=== PATIENT | female | born 1975 | race Caucasian/White ===

== ENCOUNTER 2023-04-15 12:44 | Emergency (ER) | payer BC, SELFPAY ==
[2023-04-15 12:49] VITALS: BP 140/93; PULSE 90; RESP 18; TEMP 36.5; O2SAT 98; BMI 36.6
--- NOTE | 2023-04-15 13:07 | ED.GENADUL1 ---
HPI - General Adult General Chief complaint: Extremity Problem, Nontraumatic Stated complaint: LOWER EXTREMITY PAIN BOTH FEET Time Seen by Provider: 04/15/23 12:54 History of Present Illness HPI narrative: The patient is a diabetic who developed tingling and pain in both legs about 2 months ago. She has not discussed this with her PCP. She told me that her blood sugars have been between 110 and 120 but she has not had her HbA1c checked in a long time . She is supposed to see her PCP in a few weeks. No injury to the legs. No leg redness, swelling or skin changes. She denied any pain behind the knee or in the calves. No chest pain or shortness of breath. No travel history to suggest DVT. She has HTN and DM. Takes Glipizide, she told me. Related Data Home Medications Medication Instructions Recorded Confirmed alprazolam 0.25 mg tablet 0.25 mg PO TID PRN anxiety 04/15/23 04/15/23 atorvastatin 40 mg tablet 40 mg PO DAILY 04/15/23 04/15/23 cyclobenzaprine 10 mg tablet 10 mg PO BID 04/15/23 04/15/23 glipizide 5 mg tablet 5 mg PO DAILY 04/15/23 04/15/23 hydrochlorothiazide 50 mg tablet 50 mg PO DAILY 04/15/23 04/15/23 irbesartan 150 mg tablet 150 mg PO BID 04/15/23 04/15/23 thyroid (pork) 120 mg tablet (MEDICAL LIBRARY ASSISTANT 120 mg PO DAILY 04/15/23 04/15/23 Thyroid) venlafaxine 150 mg 150 mg PO DAILY 04/15/23 04/15/23 capsule,extended release 24 hr zolpidem 10 mg tablet 10 mg PO DAILY 04/15/23 04/15/23 Allergies Allergy/AdvReac Type Severity Reaction Status Date / Time No Known Drug Allergies Allergy Verified 04/15/23 12:52 PFSH PFSH Social History Smoking status: Current every day smoker Exam Narrative Exam Narrative: Nurses notes and vital signs reviewed and patient is not hypoxic. afebrile General: Well-appearing and in no apparent distress. Skin: Warm, dry, no pallor noted. No rash to lower extremities. Head: Normocephalic, atraumatic. Eye: Pupils are equal, round and EOMI. No scleral icterus. Cardiovascular: Regular Rate and Rhythm without murmur, gallop or rub. Respiratory: No accessory muscle use or respiratory distress. Lungs are clear to auscultation, no wheezing, rales or rhonchi Musculoskeletal: Soft tissue tenderness on palpation of both feet, heels and ankles. No swelling, deformity, erythema, or skin changes. Both LEs with normal ROM, no calf or popliteal tenderness, no lower extremity edema/swelling Neurological: A&O x4. No cranial nerve dysfunction observed. No truncal ataxia. Moves all extremities. Sensation intact. Psychiatric: Cooperative and interactive. Normal mood and affect. Constitutional Vital Signs, click to edit/add: Last Vital Signs Temp 97.7 F 04/15/23 12:49 Pulse 90 04/15/23 12:49 Resp 18 04/15/23 12:49 BP 140/93 H 04/15/23 12:49 Pulse Ox 98 04/15/23 12:49 O2 Del Method Room Air 04/15/23 12:49 Course Vital Signs Vital signs: Vital Signs Temperature 97.7 F 04/15/23 12:49 Pulse Rate 90 04/15/23 12:49 Respiratory Rate 18 04/15/23 12:49 Blood Pressure 140/93 H 04/15/23 12:49 Pulse Oximetry 98 04/15/23 12:49 Oxygen Delivery Method Room Air 04/15/23 12:49 Temperature 97.7 F 04/15/23 12:49 Pulse Rate 90 04/15/23 12:49 Respiratory Rate 18 04/15/23 12:49 Blood Pressure 140/93 H 04/15/23 12:49 Pulse Oximetry 98 04/15/23 12:49 Oxygen Delivery Method Room Air 04/15/23 12:49 Medical Decision Making [facility] Narrative Medical decision making narrative: Patient's presentation is consistent with diabetic neuropathy. Basic blood testing obtained including CRP and ESR. WBC 11k. ESR 36. K 3.4. CRP negative. Remainder of blood testing unremarkable. Patient informed of results. She has an appointment with her PCP and can discuss any additional non-emergent testing such as EMG or initiation of monitored meds like Neurontin. . Lab Data Lab results reviewed: Yes I reviewed the patient's lab results Labs: Lab Results 04/15/23 Range/Units 13:13 WBC 11.1 H (4.0-11.0) 10^3/uL RBC 4.88 (4.20-5.40) 10^6/uL Hgb 14.2 (12.0-16.0) g/dL Hct 43.5 (36.0-48.0) % MCV 89.1 (81.0-99.0) fL MCH 29.1 (26.7-34.0) pg MCHC 32.6 (29.9-35.2) g/dL RDW 13.5 (11.0-15.0) % Plt Count 320 (150-450) 10^3/uL MPV 10.1 (9.5-13.5) fL Neut % (Auto) 43.8 (43.0-75.0) % Lymph % (Auto) 44.2 (20.5-60.0) % Rogers % (Auto) 5.1 (1.7-12.0) % Eos % (Auto) 5.6 (0.9-7.0) % Baso % (Auto) 0.8 (0.2-2.0) % Neut # (Auto) 4.9 (1.4-6.5) 10^3/uL Lymph # (Auto) 4.9 H (1.2-3.8) 10^3/uL Rogers # (Auto) 0.6 (0.3-0.8) 10^3/uL Eos # (Auto) 0.6 (0.0-0.7) 10^3/uL Baso # (Auto) 0.1 (0.0-0.1) 10^3/uL Abs Immat Gran (auto) 0.05 H (0.00-0.03) 10^3/uL Imm/Tot Granulo (auto) 0.5 (0.0-0.5) % ESR 36 H (<=30) mm/hr Sodium 140 (136-145) mmol/L Potassium 3.4 L (3.5-5.1) mmol/L Chloride 101 (98-107) mmol/L Carbon Dioxide 30.9 (21.0-32.0) mmol/L Anion Gap 11.5 BUN 14.0 (7.0-18.0) mg/dL Creatinine 0.87 (0.55-1.02) mg/dL Est GFR ( Amer) >60 (>=60) Est GFR (Non-Af Amer) >60 (>=60) BUN/Creatinine Ratio 16.1 Glucose 141 H (74-106) mg/dL Calcium 9.2 (8.5-10.1) mg/dL C-Reactive Protein <0.2 (<=1.0) mg/dL Discharge Plan Discharge Chief Complaint: Extremity Problem, Nontraumatic Clinical Impression: Diabetic peripheral neuropathy Patient Disposition: Home, Self-Care Time of Disposition Decision: 13:49 Prescriptions / Home Meds: No Action alprazolam 0.25 mg tablet 0.25 mg PO TID PRN (Reason: anxiety) atorvastatin 40 mg tablet 40 mg PO DAILY cyclobenzaprine 10 mg tablet 10 mg PO BID glipizide 5 mg tablet 5 mg PO DAILY hydrochlorothiazide 50 mg tablet 50 mg PO DAILY irbesartan 150 mg tablet 150 mg PO BID thyroid (pork) [MEDICAL LIBRARY ASSISTANT Thyroid] 120 mg tablet 120 mg PO DAILY venlafaxine 150 mg capsule,extended release 24hr 150 mg PO DAILY zolpidem 10 mg tablet 10 mg PO DAILY Instructions: Foot Care for People with Diabetes (ED), Diabetic Neuropathy (ED) Stand Alone Forms: Portal Instructions Referrals: Physician,Non-Staff, MD [Primary Care Provider] - 1 week
[2023-04-15 13:22] LABS: Basophils Absolute Auto 0.1 10^3/uL (0.0-0.1); Basophils Percent Auto 0.8 % (0.2-2.0); Eosinophils Absolute Auto 0.6 10^3/uL (0.0-0.7); Eosinophils Percent Auto 5.6 % (0.9-7.0); Hematocrit 43.5 % (36.0-48.0); Hemoglobin 14.2 g/dL (12.0-16.0); Immature Granulocytes Abs Auto 0.05 10^3/uL (0.00-0.03); Immature Granulocytes Pct Auto 0.5 % (0.0-0.5); Lymphocytes Absolute Auto 4.9 10^3/uL (1.2-3.8); Lymphocytes Percent Auto 44.2 % (20.5-60.0); Mean Corpuscular HGB Conc 32.6 g/dL (29.9-35.2); Mean Corpuscular Hemoglobin 29.1 pg (26.7-34.0); Mean Corpuscular Volume 89.1 fL (81.0-99.0); Mean Platelet Volume 10.1 fL (9.5-13.5); Monocytes Absolute Auto 0.6 10^3/uL (0.3-0.8); Monocytes Percent Auto 5.1 % (1.7-12.0); Neutrophils Absolute Auto 4.9 10^3/uL (1.4-6.5); Neutrophils Percent Auto 43.8 % (43.0-75.0); Platelet Count 320 10^3/uL (150-450); Red Blood Count 4.88 10^6/uL (4.20-5.40); Red Cell Distribution Width 13.5 % (11.0-15.0); White Blood Count 11.1 10^3/uL (4.0-11.0)
[2023-04-15 13:24] LABS: Erythrocyte Sedimentation Rate 36 mm/hr (<=30)
[2023-04-15 13:28] LABS: Anion Gap 11.5; BUN Creatinine Ratio 16.1; C Reactive Protein <0.2 mg/dL (<=1.0); Calcium 9.2 mg/dL (8.5-10.1); Carbon Dioxide 30.9 mmol/L (21.0-32.0); Chloride 101 mmol/L (98-107); Estimated GFR (African America >60 (>=60); Estimated GFR (Non-African Ame >60 (>=60); Glucose 141 mg/dL (74-106); Potassium 3.4 mmol/L (3.5-5.1); Sodium 140 mmol/L (136-145)
== END 2023-04-15 13:56 | disposition home or self-care (01) ==
PROVIDERS: Emergency Provider Emergency Medicine
DX: E11.42 Type 2 diabetes mellitus with diabetic polyneuropathy (principal); I10 Essential (primary) hypertension; Z79.899 Other long term (current) drug therapy; Z79.890 Hormone replacement therapy; F17.210 Nicotine dependence, cigarettes, uncomplicated
CPT/HCPCS: 36415; 80048; 85025; 85652; 86140; 99283

== ENCOUNTER 2023-12-12 11:59 | Outpatient (OUT) | payer BC, SELFPAY ==
[2023-12-12 12:26] LABS: Basophils Absolute Auto 0.1 10^3/uL (0.0-0.1); Basophils Percent Auto 0.7 % (0.2-2.0); Eosinophils Absolute Auto 0.5 10^3/uL (0.0-0.7); Eosinophils Percent Auto 3.6 % (0.9-7.0); Hematocrit 44.7 % (36.0-48.0); Hemoglobin 14.4 g/dL (12.0-16.0); Immature Granulocytes Abs Auto 0.07 10^3/uL (0.00-0.03); Immature Granulocytes Pct Auto 0.5 % (0.0-0.5); Lymphocytes Percent Auto 33.7 % (20.5-60.0); Mean Corpuscular HGB Conc 32.2 g/dL (29.9-35.2); Mean Corpuscular Hemoglobin 28.9 pg (26.7-34.0); Mean Corpuscular Volume 89.8 fL (81.0-99.0); Mean Platelet Volume 10.1 fL (9.5-13.5); Monocytes Absolute Auto 0.7 10^3/uL (0.3-0.8); Neutrophils Absolute Auto 8.3 10^3/uL (1.4-6.5); Neutrophils Percent Auto 56.5 % (43.0-75.0); Platelet Count 331 10^3/uL (150-450); Red Blood Count 4.98 10^6/uL (4.20-5.40); Red Cell Distribution Width 12.9 % (11.0-15.0); White Blood Count 14.7 10^3/uL (4.0-11.0)
[2023-12-12 12:55] LABS: Anion Gap 13.7; BUN Creatinine Ratio 18.7; Calcium 9.2 mg/dL (8.5-10.1); Carbon Dioxide 28.6 mmol/L (21.0-32.0); Chloride 102 mmol/L (98-107); Estimated GFR (African America >60 (>=60); Estimated GFR (Non-African Ame >60 (>=60); Glucose 161 mg/dL (74-106); Potassium 3.3 mmol/L (3.5-5.1); Sodium 141 mmol/L (136-145)
== END 2023-12-12 12:00 | disposition home or self-care (01) ==
LOC: LAB 12:01
PROVIDERS: Visit Provider Podiatrist Foot & Ankle Surgery
DX: Z01.812 Encounter for preprocedural laboratory examination (principal)
CPT/HCPCS: 36415; 80048; 85025

== ENCOUNTER 2025-02-19 13:15 | Outpatient (OUT) | payer OTHER, SELFPAY ==
--- NOTE | 2025-02-19 13:20 | ECG_ITS ---
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 Measurements Intervals Jackson Rate: 70 P: 24 AR: 196 QRS: 43 QRSD: 98 T: 60 QT: 401 QTc: 434 Interpretive Statements SINUS RHYTHM Normal ECG Compared to ECG 04/01/2022 00:12:50 No significant changes Electronically Signed On 02-19-2025 13:59:57 EDT by AYANNA BRIONES M.D.
--- OUTSIDE RECORDS SUMMARY | 2025-02-19 13:33 | XMS_ITS | CCD ---
Author Organization [facility] Inform ion [facility] Care Team Providers Care Temper [place] Name Role Phone DR JOSE L ROMERO Attending Unavailable HEATHER, DR JOSE L Jason Consulting Unavailable HEATHER, DR JOSE L Jason Admitting Unavailable ANDRES WOLF Consulting Unavailable Arely Clemens Unavailable HEIDI Tee Emergency Provider GUILLE Rivera Primary Care Provider Danny Tee Admitting Unavailable Danny Tee Attending Unavailable Asha Rivera Primary Care Unavailable Asha Rivera MD Unavailable Asha Rivera Primary Care Physician DOLADONIS FLORES Attending Unavailable DOLCE, ADONIS Obando Attending Unavailable DOLCE, ADONIS Obando Referring Unavailable DOLCE, ADONIS Obando Attending Unavailable DOLCE, ADONIS Obando Attending Unavailable DOLCE, ADONIS Obando Attending Unavailable DOLCE, ADONIS Obando Attending Unavailable TESMONDCESAR Attending Unavailable DOLCE, ADONIS Obando Referring Unavailable DOLCE, ADONIS Obando Attending Unavailable DOLCE, ADONIS Obando Attending Unavailable DOLCE, ADONIS Obando Attending Unavailable DOLCE, ADONIS Obando Referring Unavailable DOLCE, ADONIS Obando Attending Unavailable DOLCE, ADONIS Obando Attending Unavailable DOLCE, ADONIS Obando Attending Unavailable ASHA NOE Referring Unavailable NILLBernard Attending Unavailable Allergies Allergy Classification Reported Allergen(s) Allergy Type Date of Onset Reaction(s) Facility (2 sources) metFORMIN; Translations: [metformin] Drug Allergy Vomiting (disorder), Nausea (finding) [facility] (2 sources) Rybelsus; Translations: [semaglutide] Drug allergy unknown [facility] [place] Medications Current Medications Medication Drug Class(es) Dates Sig (Normalized) Sig (Original) 3 ML semaglutide 2.68 MG/ML Pen Injector [Ozempic] (1 source) Start: 02-04-2025 inject 2 mg by subcutaneous injection every week Ozempic 8 mg/3 mL (2 mg dose) subcutaneous solution 2 mg, SubCutaneous, qWeek, Refills(s) 0 Start Date: 02/04/25 Status: Ordered Repeat number: 1 acetaminophen 325 mg / HYDROcodone bitartrate 5 mg oral tablet (1 source) Opioid Agonist Start: 05-02-2020 [place] 325 mg-5 mg oral tablet See Instructions, for pain, 40 tab(s), Refill(s) 0, 1 - 2 po q4-6h prn pain Dx: m17.11 Duration: 7 days, [facility]/pharmacy #[id number], 162, cm, 04/28/20 13:15:00 EDT, Height/Length Dosing, 113.6, kg, 04/28/20 13:15:00 EDT, Weight Dosing Start Date: 05/02/20 Status: Ordered acetaminophen 325 mg / oxyCODONE hydrochloride 5 mg oral tablet (1 source) Opioid Agonist Start: 05-24-2023 take 1 tablet by mouth every six hours Oxycodone-Acetami nophen (Percocet) 5-325 mg tablet Active 1 TAB PO Q6H 10 May 24, 2023 [id number] 200 actuat albuterol 0.09 mg/actuat metered dose inhaler (1 source) beta2-Adrenergic Agonist Start: 06-08-2022 take 2 puff(s) by inhalation every four hours as needed Albuterol Sulfate HFA 108 (90 Base) MCG/ACT 2 puffs as needed Inhalation every 4 hrs May, Active ALPRAZolam 0.25 mg oral tablet (3 sources) Benzodiazepine Start: 02-04-2025 take 1 tablet by mouth three times daily as needed for anxiety Xanax 0.25 mg Tab 0.25 mg = 1 tab(s), Oral, TID, PRN as needed for anxiety, Refills(s) 0 Start Date: 02/04/25 Status: Ordered Repeat number: 1 Start: 02-16-2023 take 1 tablet by aneesh th in the morning, then take 1 tablet by mouth in the evening, then take 1 tablet by mouth at bedtime ALPRAZolam (Xanax) 0.25 MG tablet Take 0.25 mg by mouth in the morning and 0.25 mg in the evening and 0.25 mg before bedtime. 0 02/16/2023 Active amitriptyline hydrochloride 50 mg oral tablet (1 source) Tricyclic Antidepressant Start: 04-28-2020 take 1 tablet by mouth once daily at bedtime amitriptyline 50 mg Tab 50 mg = 1 tab(s), Oral, Once a day (at bedtime), Depression Start Date: 04/28/20 Status: Ordered amoxicillin 875 mg oral tablet (1 source) Penicillin-class Antibacterial Start: 06-08-2022 take 1 tablet by mouth every twelve hours Amoxicillin 875 MG 1 tablet Orally every 12 hrs for 7 days May, Active aspirin 325 mg delayed release oral tablet (1 source) Platelet Aggregation Inhibitor, Nonsteroidal Anti-inflammatory Drug Start: 05-02-2020 take 1 tablet by mouth once daily Ecotrin 325 mg Tab-EC 325 mg = 1 tab(s), Oral, Daily, # 21 tab(s), Refills(s) 0, Pharmacy: [facility]/pharmacy #[id number], 162, cm, 04/28/20 13:15:00 EDT, Height/Length Dosing, 113.6, kg, 04/28/20 13:15:00 EDT, Weight Dosing Start Date: 05/02/20 Status: Ordered atorvastatin 40 mg oral tablet (5 sources) HMG-CoA Reductase Inhibitor Start: 02-04-2025 take 1 tablet by mouth once daily atorvastatin 40 mg Tab 40 mg = 1 tab(s), Oral, Daily, Refills(s) 0 Start Date: 02/04/25 Status: Ordered Repeat number: 1 Start: 02-18-2023 take 1 tablet by aneesh th in the morning atorvastatin (Lipitor) 40 MG tablet Take 40 mg by mouth in the morning. 0 02/18/2023 Active Start: 04-28-2020 take 1 tablet by aneesh th once daily atorvastatin 20 mg Tab 20 mg = 1 tab(s), Oral, Daily, High cholesterol Start Date: 04/28/20 Status: Ordered Atorvastatin Ascencion cium Active 12 hr buPROPion hydrochloride 90 mg / naltrexone hydrochloride 8 mg extended release oral tablet (1 source) Opioid Antagonist, Aminoketone Contrave 8-90 MG (Pr ior Auth: Rx Ref#:[id number]) Oral for 30 Active cyclobenzaprine hydrochloride 10 mg oral tablet (3 sources) Muscle Relaxant Start: take 1 tablet by mouth three times daily as needed for muscle spasms cyclobenzaprine 10 mg Tab 10 mg = 1 tab(s), Oral, TID, PRN for spasm, Refills(s) 0 Start Date: 02/04/25 Status: Ordered Repeat number: 1 Start: 02-16-2023 take 1 tablet by aneesh in the morning cyclobenzaprine (Flexeril) 10 MG tablet Take 10 mg by mouth in the morning and 10 mg before bedtime. 0 02/16/2023 Active diclofenac sodium 0.01 mg/mg topical gel (2 sources) Nonsteroidal Anti-inflammatory Drug Start: 05-19-2023 End: 08-17-2023 diclofenac sodium 1 % gel Indications: Neuralgia Apply 2 g topically in the morning and 2 g in the evening and 2 g before bedtime. 180 g 2 05/19/2023 08/17/2023 Active escitalopram 10 mg oral tablet (2 sources) Serotonin Reuptake Inhibitor take 1 tablet by mouth every twenty-four hours Lexapro 10 MG 1 tablet Orally Once a day Active Escitalopram Oxa late 20 MG (Prior Auth: Rx Ref#:[id number]) Oral for 30 Active fluticasone propionate 0.05 mg/actuat metered dose nasal spray (1 source) Corticosteroid Start: 02-04-2025 Flonase 0.05 mg/inh Martin 2 spray(s), Nasal, Daily, Refill(s) 0 Start Date: 02/04/25 Status: Ordered Repeat number: 1 gabapentin 300 mg oral capsule (3 sources) Anti-epileptic Agent Start: 02-04-2025 take 1 capsule by mouth three times daily gabapentin 300 mg Cap 300 mg = 1 cap(s), Oral, TID, Refills(s) 0 Start Date: 02/04/25 Status: Ordered Repeat number: 1 Start: 05-06-2023 take 1 capsule by mo uth in the morning, then take 1 capsule by mouth in the evening, then take 1 capsule by mouth at bedtime gabapentin (Neurontin) 300 MG capsule Take 300 mg by mouth in the morning and 300 mg in the evening and 300 mg before bedtime. 0 05/06/2023 Active glipiZIDE 5 mg oral tablet (2 sources) Sulfonylurea take 1 tablet by mouth in the morning glipiZIDE (Glucotrol) 5 MG tablet Take 5 mg by mouth in the morning. 0 Active hydroCHLOROthiazide 50 mg oral tablet (5 sources) Thiazide Diuretic Start: 2024 take 1 tablet by mouth once daily hydrochlorothiazide 50 mg Tab 50 mg = 1 tab(s), Oral, Daily, Refills(s) 0 Start Date: 02/04/25 Status: Ordered Repeat number: 1 Start: 04-28-2020 take 1 tablet by aneesh th once daily hydrochlorothiazide 25 mg Tab 25 mg = 1 tab(s), Oral, Daily, High blood pressure Start Date: 04/28/20 Status: Ordered take 1 tablet by aneesh th in the morning hydroCHLOROthiazide (HYDRODiuril) 50 MG tablet Take 50 mg by mouth in the morning. 0 Active hydroCHLOROthiaz deni Active hydroCHLOROthiazide 25 mg / losartan potassium 100 mg oral tablet (1 source) Thiazide Diuretic, Angiotensin 2 Receptor [place] Losartan Potassium-H CTZ 100-25 MG (Prior Auth: Rx Ref#:[id number]) Oral for 30 Active irbesartan 150 mg oral tablet (5 sources) Angiotensin 2 Receptor [place] Start: 2019 take 1 tablet by mouth once daily irbesartan 150 mg Tab 150 mg = 1 tab(s), Oral, Daily, High blood pressure Start Date: 04/28/20 Status: Ordered Repeat number: 1 Irbesartan Activ e meloxicam 15 mg oral tablet (2 sources) Nonsteroidal Anti-inflammatory Drug Start: 08-03-2023 End: 09-02-2023 take 1 tablet by mouth in the morning, then take 1 tablet by mouth once daily meloxicam (Mobic) 15 MG tablet Indications: Osteoarthritis Take 1 tablet (15 mg) by mouth in the morning. Take one pill PO Daily. 30 tablet 0 08/03/2023 09/02/2023 Active methylPREDNISolone 4 mg oral tablet (1 source) Corticosteroid Start: 06-08-2022 methylPREDNISolone 4 MG as directed Orally Once a day for 6 days May, Active thyroid (care home) 120 mg oral tablet (5 sources) Start: 04-28-2020 take 1 tablet by mouth once daily [facility] Thyroid 120 mg Tab 120 mg = 1 tab(s), Oral, Daily, Thyroid Start Date: 04/28/20 Status: Ordered Repeat number: 1 24 hr venlafaxine 150 mg extended release oral capsule (6 sources) Serotonin and Norepinephrine Reuptake Inhibitor Start: 04-28-2020 take 1 capsule by mouth once daily venlafaxine 150 mg Cap-ER 150 mg = 1 cap(s), Oral, Daily, Refills(s) 0 Start Date: 02/04/25 Status: Ordered Repeat number: 1 take 1 capsule by mo [facility] every twenty-four hours in the morning venlafaxine XR (Effexor XR) 150 MG 24 hr capsule Take 150 mg by mouth in the morning. 0 Active Venlafaxine HCl Active zolpidem tartrate 10 mg oral tablet (3 sources) gamma-Aminobutyric Acid-ergic Agonist Start: 02-04-2025 take 1 tablet by mouth once daily at bedtime as needed for sleep Ambien 10 mg Tab 10 mg = 1 tab(s), Oral, Once a day (at bedtime), PRN for sleep, Refills(s) 0 Start Date: 02/04/25 Status: Ordered Repeat number: 1 take 1 tablet by [facility] at bedtime for sleep zolpidem (Ambien) 10 MG tablet Take 10 m g by mouth at bedtime. for sleep 0 Active Completed/Discontinued Medications Medication Drug Class(es) Dates Sig (Normalized) Sig (Original) potassium chloride 20 meq extended release oral tablet (1 source) Start: 02-04-2025 take 1 tablet by mouth once daily potassium chloride 20 mEq ER Tab 20 mEq = 1 tab(s), Oral, Daily, Refills(s) 0 Start Date: 02/04/25 Status: Ordered Repeat number: 1 Problems Active Problems Problem Classification Problem Date Documented Date Episodic/Chronic Chronic obstructive pulmonary disease and bronchiectasis (1 source) Chronic obstructive pulmonary disease, unspecified; Translations: [COPD UNSPECIFIED] Onset: 04-02-2022 Chronic Chronic obstructive pulmonary disease and bronchiectasis (1 source) Bronchitis, not specified as acute or chronic Episodic Diabetes mellitus with complications (1 source) Disorder of nervous system due to type 2 diabetes mellitus; Translations: [Type 2 diabetes mellitus with other diabetic neurological complication] 08-17-2023 Chronic Diabetes mellitus without complication (1 source) Type 2 diabetes mellitus Onset: 02-24-2023 02-04-2025 Chronic Disorders of lipid metabolism (1 source) Mixed hyperlipidemia Onset: 02-24-2023 02-04-2025 Chronic Esophageal disorders (1 source) Gastroesophageal reflux disease 02-04-2025 Chronic Essential hypertension (4 sources) Hypertensive disorder; Translations: [Essential hypertension] Onset: 02-24-2023 09-21-2013 Chronic Immunizations and screening for infectious disease (2 sources) Contact with and (suspected) exposure to other viral communicable diseases; Translations: [Contact with and (suspected) exposure to other viral communicable diseases] Episodic Mood disorders (4 sources) Depressive disorder 09-21-2013 Chronic Nonspecific chest pain (1 source) Other chest pain; Translations: [OTHER CHEST PAIN] Onset: 04-02-2022 Episodic Osteoarthritis (2 sources) Osteoarthritis of knee 04-28-2020 Chronic Other connective tissue disease (1 source) Foot pain; Translations: [Pain in right foot] 05-24-2023 Episodic Other connective tissue disease (1 source) Pain in left foot; Translations: [Pain in left foot] Onset: 05-24-2023 Episodic Other connective tissue disease (1 source) Plantar fasciitis; Translations: [Plantar fascial fibromatosis] 08-17-2023 Episodic Other nervous system disorders (1 source) Neuropathy; Translations: [Polyneuropathy, unspecified] 05-24-2023 Chronic Other nervous system disorders (1 source) Mortons neuroma of left foot; Translations: [Lesion of plantar nerve, left lower limb] 08-17-2023 Chronic Other nervous system disorders (1 source) Mortons neuroma of right foot; Translations: [Lesion of plantar nerve, right lower limb] 08-17-2023 Chronic Other nutritional; endocrine; and metabolic disorders (1 source) Body mass index 30+ - obesity 02-08-2025 Chronic Other nutritional; endocrine; and metabolic disorders (1 source) Obese class III 02-04-2025 Chronic Other upper respiratory disease (1 source) Allergic rhinitis 02-04-2025 Chronic Otitis media and related conditions (1 source) Otitis media, unspecified, right ear Episodic Substance-related disorders (3 sources) Nicotine dependence, cigarettes, uncomplicated; Translations: [Smoker] Onset: 04-02-2022 10-31-2014 Chronic Comment on above: Added secondary to d ocumentation in Social History. Thyroid disorders (3 sources) Hypothyroidism 04-28-2020 Chronic Unclassified (3 sources) COUGH, UNSPECIFIED; Translations: [COUGH, UNSPECIFIED] Onset: 04-02-2022 Unclassified (1 source) Pain in right foot; Translations: [Pain in right foot] Onset: 05-24-2023 Past or Other Problems Problem Classification Problem Date Documented Da te Episodic/Chronic Unclassified (1 source) COUGH, UNSPECIFIED; Translations: [COUGH, UNSPECIFIED] Onset: 2022 Viral infection (1 source) COVID-19 Results Test Name Value Interpretation Reference Range Facility Ambulatory Visit Summaryon 0 02-08-2025 Ambulatory Visit Summary Ambulatory Visit Summary [place] :1975 Visit Date:02/08/2025 Ambulatory Visit Instructions Your Care Team Attending Physician - URIEL WONG, Bernard Jason Primary Care Physician - Miguel JACK, Asha Espana Referring Physician - DR. ASHA NOE This Is Your Medications List Contact prescribing physician if questions or concerns alprazolam (Xanax 0.25 mg Tab) atorvastatin (atorvastatin 40 mg Tab) cyclobenzaprine (cyclobenzaprine 10 mg Tab) fluticasone nasal (Flonase 0.05 mg/inh Martin) gabapentin (gabapentin 300 mg Cap) hydrochlorothiazide (hydrochlorothiazide 50 mg Tab) irbesartan (irbesartan 150 mg Tab) potassium chloride (potassium chloride 20 mEq ER Tab) semaglutide (Ozempic 8 mg/3 mL (2 mg dose) subcutaneous solution) thyroid desiccated ([place] Thyroid 120 mg Tab) venlafaxine (venlafaxine 150 mg Cap-ER) venlafaxine (venlafaxine 150 mg Cap-ER) zolpidem (Ambien 10 mg Tab) Procedures Performed Arthroscopic chondroplasty of knee joint (05/02/2020), Arthroscopy of knee (05/02/2020), Appendectomy, Bone spur, , Ovarian cystectomy, Plantar fasciotomy, CON BSO - Total abdominal hysterectomy and bilateral salpingo-oophorectomy. Discharge Vitals Heart Rate (Peripheral) 86 Respiratory Rate 16 Blood Pressure 127/86 Height 162.5 cm Height 64 in Weight 96.7 kg Weight 213.187 lb BMI 36.62 What to do next Scheduled Follow-Up Appointments Tuesday 3:30 PM EDT Where: [facility] Medications What How Much When Instructions Unchanged alprazolam (Xanax 0.25 mg Tab) 1 Tablets By Mouth 3 times a day as needed for as needed for anxiety Contact prescribing physician if questions or concerns Unchanged atorvastatin (atorvastatin 40 mg Tab) 1 Tablets By Mouth Every day Contact prescribing physician if questions or concerns Unchanged cyclobenzaprine (cyclobenzaprine 10 mg Tab) 1 Tablets By Mouth 3 times a day as needed for for spasm Contact prescribing physician if questions or concerns Unchanged fluticasone nasal (Flonase 0.05 mg/ inh Martin) 2 Sprays Nasal Inhalation Every day Contact prescribing physician if questions or concerns Unchanged gabapentin (gabapentin 300 mg Cap) 1 Capsules By Mouth 3 times a day Contact prescribing physician if questions or concerns Unchanged hydrochlorothiazide (hydrochlorothiazide 50 mg Tab) 1 Tablets By Mouth Every day Contact prescribing physician if questions or concerns Unchanged irbesartan (irbesartan 150 mg Tab) 1 Tablets By Mouth Every day Contact prescribing physician if questions or concerns Unchanged potassium chloride (potassium chloride 20 mEq ER Tab) 1 Tablets By Mouth Every day Contact prescribing physician if questions or concerns Unchanged semaglutide (Ozempic 8 mg/ 3 mL (2 mg dose) subcutaneous solution) 2 Milligram Subcutaneous Every week Contact prescribing physician if questions or concerns Unchanged thyroid desiccated ([place] Thyroid 120 mg Tab) 1 Tablets By Mouth Every day Contact prescribing physician if questions or concerns Unchanged venlafaxine (venlafaxine 150 mg Cap-ER) 1 Capsules By Mouth Every day Contact prescribing physician if questions or concerns Unchanged venlafaxine (venlafaxine 150 mg Cap-ER) 1 Capsules By Mouth Every day Contact prescribing physician if questions or concerns Unchanged zolpidem (Ambien 10 mg Tab) 1 Tablets By Mouth Once a day (at bedtime) as needed for for sleep Contact prescribing physician if questions or concerns Allergies Rybelsus (unknown) metFORMIN (Vomiting, Nausea) Problems Ongoing - Any problem that you are currently receiving treatment for. Allergic rhinitis BMI 36.0-36.9,adult Class 3 obesity Depression Essential hypertension GERD (gastroesophageal reflux disease) Hypothyroidism Mixed hyperlipidemia Smoker Type 2 diabetes mellitus Historical - Any problem that you are no longer receiving treatment for. Depression HTN (hypertension) Patient Survey You may receive a survey via text or e-mail asking about your office visit. Please share your experience with us by completing your survey. We appreciate your feedback and thank you for choosing us for your care. Patient Portal You may access all of your results and other medical record information on our secure patient portal. If you are not signed up for this yet, please contact [employer] at [phone] to get signed up today. Language Information Language assistance services are available as needed. Normal [facility] XR CHEST 2 VIEWSon 4 XR CHEST 2 VIEWS EXAMINATION: XR CHES T 2 VIEWS CLINICAL HISTORY: PRE-OP COMPARISONS: None FINDINGS: Two views of the chest are submitted. The cardiac silhouette is of normal size configuration. \Pulmonary vascular unremarkable. Right sided trachea. No focal infiltrates. No effusions. No Pneumothoraces. IMPRESSION: NO ACUTE ACTIVE CARDIOPULMONARY PROCESS ELECTRONICALLY SIGNED BY: Mynor Mcmullen MD Normal Not Available XR foot BI 3Von 05-24-2023 XR foot BI 3V [facility] [place] [address] [place] [address] XRay Report Signed Patient: David Oconnor MR#: [id number] : 1975 Acct:[id number] Age/Sex: 48 / F ADM Date: 05/24/23 Loc: ER Room: Type: [facility] ER Attending Dr: Copies to: Danny Tee PA-C Ordering Provider: Danny Tee PA-C Date of Service: 05/24/23 XR/XR foot BI 3V: Extremity Problem, Nontraumatic XR foot BI 3V 05/24/2023 5:46 PM SIGNS AND SYMPTOMS: Bilateral heel pain PROTOCOL: Frontal, lateral, and oblique radiographs of the bilateral feet COMPARISON: None FINDINGS: The joint spaces of the foot are preserved. There is no fracture or dislocation. No significant soft tissue swelling. Plantar surface calcaneal spurring is noted on the left. XR/XR foot BI 3V IMPRESSION: There is plantar surface calcaneal spurring on the left. No acute bony injury or significant degenerative change. Impression dictated by: Jose L Zavaleta M.D.05/24/2023 6:35 PM Dictation Location: [place] [address] Transcribed By: [facility] 05/24/231834 Dictated By: Jose L Zavaleta II, MD 05/24/231833 Signed By: 05/24/231834 Normal [facility] COVID/FLU RT-PCRon SARS-CoV-2 (COVID-19) RNA SCARLETT+probe Ql (Unsp spec) Positive [facility] Other COVID/FLU RT-PCR Negative [facility] Other CBC AUTO DIFFon 2022 BASO # 0.1 103/ul Normal 0.0-0.1 [facility] Comment on above: Performed By: #### C BC #### [facility] [address] [place] [address] Dr. Dana Mckeon Basophils/100 WBC (Bld) 0.7 % Normal 0.2-2.0 [facility] Comment on above: Performed By: #### C BC #### [facility] [address] [place] [address] Dr. Dana Mckeon EO # 0.4 103/ul Normal 0.0-0.7 [facility] Comment on above: Performed By: #### C BC #### [facility] [address] [place] [address] Dr. Dana Mckeon Eosinophils/100 WBC (Bld) 2.2 % Normal 0.9-7.0 [facility] Comment on above: Performed By: #### C BC #### [facility] [address] [place] [address] Dr. Dana Mckeon Erythrocyte distribution width (RBC) [Ratio] 13.7 % Normal 11.0-15.0 [facility] Comment on above: Performed By: #### C BC #### [facility] [address] [place] [address] Dr. Dana Mckeon Hematocrit (Bld) [Volume fraction] 48.5 % Critically high 36.0-48.0 [facility] Comment on above: Performed By: #### C BC #### [facility] [address] [place] [address] Dr. Dana Mckeon Hemoglobin (Bld) [Mass/Vol] 16.0 g/dL Normal 12.0-16.0 [facility] Comment on above: Performed By: #### C BC #### [facility] [address] [place] [address] Dr. Dana Mckeon IG # 0.06 10e3/ul Critically high 0.00-0.03 [facility] Comment on above: Performed By: #### C BC #### [facility] [address] [place] [address] Dr. Dana Mckeon IG % 0.4 % Normal 0.0-0.5 [facility] Comment on above: Performed By: #### C BC #### [facility] [address] [place] [address] Dr. Dana Mckeon LYMPH # 1.9 103/ul Normal 1.2-3.8 [facility] Comment on above: Performed By: #### C BC #### [facility] [address] [place] [address] Dr. Dana Mckeon Lymphocytes/100 WBC (Bld) 12.0 % Critically low 20.5-60.0 [facility] Comment on above: Performed By: #### C BC #### [facility] [address] [place] [address] Dr. Dana Mckeon MANUAL DIFF REQ NO Normal [facility] Comment on above: Performed By: #### C BC #### [facility] [address] [place] [address] Dr. Dana Mckeno MCH (RBC) [Entitic mass] 28.8 pg Normal 26.7-34.0 [facility] Comment on above: Performed By: #### C BC #### [facility] [address] [place] [address] Dr. Dana Mckeon MCHC (RBC) [Mass/Vol] 33.0 g/dL Normal 29.9-35.2 [facility] Comment on above: Performed By: #### C BC #### [facility] [address] [place] [address] Dr. Dana Mckeon MCV (RBC) [Entitic vol] 87.2 fL Normal 81.0-99.0 [facility] Comment on above: Performed By: #### C BC #### [facility] [address] [place] [address] Dr. Dana Mckeon MONO # 0.7 103/ul Normal 0.3-0.8 [facility] Comment on above: Performed By: #### C BC #### [facility] [address] [place] [address] Dr. Dana Mckeon Monocytes/100 WBC (Bld) 4.4 % Normal 1.7-12.0 [facility] Comment on above: Performed By: #### C BC #### [facility] [address] [place] [address] Dr. Dana Mckeon NEUT # 12.9 103/ul Critically high 1.4-6.5 [facility] Comment on above: Performed By: #### C BC #### [facility] [address] [place] [address] Dr. Dana Mckeon Neutrophils/100 WBC (Bld) 80.3 % Critically high 43.0-75.0 [facility] Comment on above: Performed By: #### C BC #### [facility] [address] [place] [address] Dr. Dana Mckeon Platelet mean volume (Bld) [Entitic vol] 10.2 fL Normal 9.5-13.5 [facility] Comment on above: Performed By: #### C BC #### [facility] [address] [place] [address] Dr. Dana Mckeon PLT 324 103/ul Normal 150-[address] [facility] Comment on above: Performed By: #### C BC #### [facility] [address] [place] [address] Dr. Dana Mckeon RBC 5.56 106/ul Critically high 4.20-5.40 [facility] Comment on above: Performed By: #### C BC #### [facility] [address] [place] [address] Dr. Dana cMkeon WBC 16.1 103/ul Critically high 4.0-11.0 [facility] Comment on above: Performed By: #### C BC #### [facility] [address] [address] [address] Dana Mckeon PROF 14(COMP METB)on 022 Albumin [Mass/Vol] 4.0 g/dL Normal 3.4-5.0 [facility] Comment on above: Performed By: #### C MP #### [facility] [address] [place] [address] Dr. Dana Mckeon Albumin/Globulin [Mass ratio] 0.9 {ratio} Normal [facility] Comment on above: Performed By: #### C MP #### [facility] [address] [place] [address] Dr. Dana Mckeon ALP [Catalytic activity/Vol] 99 U/L Normal 46-116 [facility] Comment on above: Performed By: #### C MP #### [facility] [address] [place] [address] Dr. Dana Mckeon ALT [Catalytic activity/Vol] 45 U/L Normal 14-[address] [facility] Comment on above: Performed By: #### C MP #### [facility] [address] [place] [address] Dr. Dana Mckeon Anion gap [Moles/Vol] 15.9 mmol/L Normal [facility] Comment on above: Performed By: #### C MP #### [facility] [address] [place] [address] Dr. Dana Mckeon AST [Catalytic activity/Vol] 25 U/L Normal 15-[address] [facility] Comment on above: Performed By: #### C MP #### [facility] [address] [place] [address] Dr. Dana Mckeon Bilirubin [Mass/Vol] 0.3 mg/dL Normal 0.2-1.[address] [facility] Comment on above: Performed By: #### C MP #### [facility] [address] [place] [address] Dr. Dana Mckeon Calcium [Mass/Vol] 9.6 mg/dL Normal 8.5-10.[address] [facility] Comment on above: Performed By: #### C MP #### [facility] [address] [address] [address] Dana Mckeon Chloride [Moles/Vol] 100 mmol/L Normal 98-[address] [facility] Comment on above: Performed By: #### C MP #### [facility] [address] [address] [address] Dana Mckeon CO2 [Moles/Vol] 28.9 mmol/L Normal 21.0-32.0 [facility] Comment on above: Performed By: #### C MP #### [facility] [address] [address] [address] Dana Mckeon Creatinine [Mass/Vol] 0.98 mg/dL Normal 0.55-1.[address] [facility] Comment on above: Performed By: #### C MP #### [facility] [address] [place] [address] Dr. Dana Mckeon EGFR-AF NEW ZEALANDER >60 Normal >=60 [facility] Comment on above: Performed By: #### C MP #### [facility] [address] [place] [address] Dr. Dnaa Mckeon EGFR-NON AF NEW ZEALANDER 60 mL/min/1.73m2 Normal >=[address] [facility] Comment on above: Performed By: #### C MP #### [facility] [address] [place] [address] Dr. Dana Mckeon Globulin (S) [Mass/Vol] 4.3 g/dL Normal [facility] Comment on above: Performed By: #### C MP #### [facility] [address] [place] [address] Dr. Dana Mckeon Glucose [Mass/Vol] 146 mg/dL Critically high 74-[address] [facility] Comment on above: Performed By: #### C MP #### [facility] [address] [place] [address] Dr. Dana Mckeon Potassium [Moles/Vol] 3.8 mmol/L Normal 3.5-5.[address] [facility] Comment on above: Performed By: #### C MP #### [facility] [address] [place] [address] Dr. Dana Mckeon Protein [Mass/Vol] 8.3 g/dL Critically high 6.4-8.2 [facility] Comment on above: Performed By: #### C MP #### [facility] [address] [address] [address] Dana Mckeon Sodium [Moles/Vol] 141 mmol/L Normal 136-145 [facility] Comment on above: Performed By: #### C MP #### [facility] [address] [address] [address] Dana Mckeon Urea nitrogen [Mass/Vol] 13.0 mg/dL Normal 7.0-18.0 [facility] Comment on above: Performed By: #### C MP #### [facility] [address] [address] [address] Dana Mckeon Urea nitrogen/Creatini ne [Mass ratio] 13.3 mg/mg Normal [facility] Comment on above: Performed By: #### C MP #### [facility] [address] [address] [address] Dana Mckeon XR CHEST 1 Von 2022 XR CHEST 1 V CXR HISTORY: Shortness of breath, cough and chest pain COMPARISON: None. TECHNIQUE: 1 view chest submitted for review. FINDINGS: Mild prominence of interstitial lung markings. The lungs are adequately expanded without evidence of acute infiltrate or effusion. The cardiac silhouette measures within normal. Pulmonary vascularity is minimally prominent.. Osseous structures are within normal limits for age. IMPRESSION: Mild prominence of interstitial markings which can be seen in cases of edema, viral pneumonia, chronic changes and/or combination of the above. Please correlate clinically. Electronically authenticated by: ANDRES WOLF Date: 2022 01:08 Normal [facility] Vital Signs Date Time Vital Sign Value Performing Clinician Facility 08-17-2023 14:11-0500 Body height 162.6 cm Adonis Hand DPM FACFAS Work Phone: [facility] 08-17-2023 14:11-0500 Body mass index (BMI) [Ratio] 38.45 kg/m2 Adonis Hand DPM FACFAS Work Phone: [facility] 08-17-2023 14:11-0500 Body weight 101.61 kg Adoins Hand DPM FACFAS Work Phone: [facility] 08-17-2023 14:11-0500 Diastolic blood pressure 77 mm[Hg] Adonis Hand DPM FACFAS Work Phone: [facility] 08-17-2023 14:11-0500 Heart rate 74 /min Adonis Hand DPM FACFAS Work Phone: [facility] 08-17-2023 14:11-0500 Systolic blood pressure 131 mm[Hg] Adonis Hand DPM FACFAS Work Phone: [facility] 05-24-2023 17:09-0500 Body height 165.1 cm PA-C Danny Tee Work Phone: [facility] 05-24-2023 17:09-0500 Body temperature 97.7 [degF] PA-C Danny Tee Work Phone: [facility] 05-24-2023 17:09-0500 Body weight 110.3 kg PA-C Danny Tee Work Phone: [facility] 05-24-2023 17:09-0500 Diastolic blood pressure 95 mm[Hg] PA-C Danny Tee Work Phone: [facility] 05-24-2023 17:09-0500 Heart rate 86 /min PA-C Danny Tee Work Phone: [facility] 05-24-2023 17:09-0500 Respiratory rate 18 /min PA-C Danny Tee Work Phone: [facility] 05-24-2023 17:09-0500 SaO2% (BldA) [Mass fraction] 98 % PA-C Danny Tee Work Phone: [facility] 05-24-2023 17:09-0500 Systolic blood pressure 154 mm[Hg] PA-C Danny Tee Work Phone: [facility] 06-08-2022 16:00-0500 Body height 162.56 cm Arely Clemens Other [facility] [employer] Other 06-08-2022 16:00-0500 Body temperature 98.1 [degF] Arely Clemens Other [employer] Other 06-08-2022 16:00-0500 Respiratory rate 18 /min Arely Clemens Other [employer] Other 06-08-2022 16:00-0500 SaO2% (BldA) [Mass fraction] 98 % Arely Clemens Other [employer] Other Encounters Encounter Date Encounter Type Care Provider Facility Start: 02-08-2025 End: 02-08-2025 ambulatory ASHACUCO NOE Facility:[facility] Start: 02-08-2025 End: 02-08-2025 Patient encounter procedure Bernard TREVINO [facility] [place] Start: 01-31-2025 ambulatory ASHA NOE Facility :[facility] Start: 01-03-2024 End: 01-03-2024 ambulatory ADONIS D DOLCE Not Available Start: 12-27-2023 End: 12-27-2023 Patient encounter procedure Adonis D Blaynece [facility] Start: 12-27-2023 End: 12-27-2023 ambulatory ADONIS D DOLCE Not Available Start: 12-07-2023 End: 12-07-2023 ambulatory ADONIS D DOLCE Not Available Start: 11-15-2023 End: 11-15-2023 ambulatory ADONIS D DOLCE Not Available Start: 11-08-2023 End: 11-08-2023 ambulatory ADONIS D DOLCE Not Available Start: 10-20-2023 End: 10-20-2023 ambulatory ADONIS D DOLCE Not Available Start: 10-19-2023 End: 10-19-2023 ambulatory ADONIS D DOLCE Not Available Start: 09-21-2023 End: 09-21-2023 ambulatory ADONIS D DOLCE Not Available Start: 09-07-2023 End: 09-07-2023 ambulatory ADONIS D DOLCE Not Available Start: 08-17-2023 End: 08-17-2023 Office outpatient visit 15 minutes Adonis D Dolce DPM FACFAS Work Phone: [facility] Comment on above: Type II diabetes mejia litus with neurological manifestations (CMS/HCC) (Primary Dx); Nuno's neuroma of left foot; Nuno neuroma, right; Plantar fasciitis Start: 08-17-2023 Bamboo flowsheet Adonis D Dolce DPM FACFAS Work Phone: [facility] Start: 08-17-2023 Bamboo flowsheet Adonis D Dolce DPM FACFAS Work Phone: [facility] Start: 08-17-2023 End: 08-17-2023 ambulatory ADONIS D DOLCE Not Available Start: 08-03-2023 End: 08-03-2023 ambulatory ADONIS D DOLCE Not Available Start: 07-08-2023 End: 07-08-2023 ambulatory ADONIS D DOLCE Not Available Start: 06-22-2023 End: 06-22-2023 ambulatory ADONIS D DOLCE Not Available Start: 05-24-2023 End: 05-24-2023 Emergency department patient visit Danny Tee Facility:[facility] Start: 05-24-2023 End: 05-24-2023 Emergency department patient visit HEIDI Tee Work Phone: [facility] Work Phone: Start: 06-08-2022 End: 06-08-2022 ambulatory Arely Clemens Other [employer] Other Start: 06-08-2022 Office outpatient vi sit 15 minutes Arely Clemens [facility] [place] Start: 2022 End: [address] JOSE L ROMERO Facility:[facility] Procedures Date Procedure Procedure Detail Performing Clinician Start: 05-02-2020 Arthroscopic chondro plasty of knee joint Adonis Cisnerosmirella Comment on above: medial,partial media l menisectomy. patella femoral. Start: 05-02-2020 Arthroscopy of knee Mar brady Hand Appendectomy Adonis Hand section Adonis Hand Excision of cyst of ovary Mi miranda TREVINO Fasciotomy of foot Bernard MCIWLLIAMS Hysterectomy Adonis Hand Osteophyte of bone (disorder) Bernard DENTONGurwinder Total abdominal hysterectomy with bilateral salpingo-oophorectomy Bernard TREVINO Plan of Treatment Date Care Activity Detail Author Start: 09-07-2023 End: 09-07-2023 Clinical Support 09/07/2023 2:00 PM EST Clinical Support [facility] [address] [place] [address] Adonis Hand, DPM [facility]AC[facility]AS [address] [place] [address] [facility] Start: 08-17-2023 End: 08-17-2023 Clinical Support 08/17/2023 2:10 PM EST Clinical Support [facility] [address] [place] [address] Adonis Hand, DPM FAC[facility]AS [address] [place] [address] Arrived [facility] Comment on above: Arrived Start: 05-24-2023 X-ray of both feet XR foot BI 3V Fir [facility] Start: 05-24-2023 XR Foot - bilateral 3 Views [facility] Patient Education Peripheral Neuropathy F [facility] Work Phone: Patient referral [facility] Work Phone: Payers Date Payer Category Payer Private Health Insurance 8ed [id number] 2025 Private Health Insurance [id number] 2023 Unknown [id number] 2023 Self-pay 2021 Unknown BCBS BCBS [id number] [id number] 2021-Present [phone] [address] [place] [address] [id number] 1973 Unknown [id number] [id number] .593 1973 Unknown [id number] 2.16.840.1.581538.3.579.2 .1258 1973 Unknown [id number] 2.16.840.1.276942.3.579.2 .1258 1973 Unknown [id number] 2.16.840.1.236404.3.579.2 .1258 1973 Unknown [id number] 2.16.840.1.813349.3.579.2 .1258 1973 Unknown [id number] 2.16.840.1.596668.3.579.2 .1258 1973 Unknown [id number] 2.16.840.1.258327.3.579.2 .1258 1973 Unknown [id number] 2.16.840.1.824128.3.579.2 .1258 1973 Unknown [id number] 2.16.840.1.861604.3.579.2 .1258 1973 Unknown [id number] 2.16.840.1.007251.3.579.2 .1258 1973 Unknown [id number] 2.16.840.1.288405.3.579.2 .1258 1973 Unknown [id number] 2.16.840.1.531930.3.579.2 .1258 1973 Unknown [id number] 2.16.840.1.753367.3.579.2 .1259 1973 Unknown [id number] 2.16.840.1.223221.3.579.2 .9 1973 Unknown [id number] 2.16.840.1.696040.3.579.2 .1259 1973 Unknown [id number] 2.16.840.1.842502.3.579.2 .1258 1973 Unknown [id number] 2.16.840.1.945940.3.579.2 .1259 1973 Unknown [id number] 2.16.840.1.187239.3.579.2 .727 1973 Unknown [id number] 2.16.840.1.358242.3.579.2 .727 1959 Unknown [id number] Unknown [id number] 2.16.840.1.169262.3.579.2 .531 Social History Date Type Detail Facility Start: 05-19-2023 End: 08-17-2023 Sex Assigned At [facility] Start: 05-24-2023 Tobacco smoking stat [facility] Smoker (finding) [facility] Start: 1975 Sex Assigned At Female F [facility] Start: 01-08-2011 [facility] Start: 01-08-2011 History of tobacco use Cigarette Smo ker [facility] Start: 05-19-2023 End: 08-17-2023 Cigarettes smoked current (pack per day) - Reported 1 [facility] Start: 08-03-2023 End: 08-17-2023 Alcohol intake Current drinker of alcohol (finding) [facility] How often to you hav e a drink containing alcohol? Monthly or less [facility] How many standard dr inks containing alcohol do you have on a typical day? 1 or 2 [facility] How often do you hav e 6 or more drinks on 1 occasion? Never [facility] Start: 05-19-2023 Tobacco Comment Smokes 11-20 c igs per day [facility] Start: 05-19-2023 Alcohol Comment caffeine intak e: 2-3 cups per day [facility] Start: 1975 Sex Assigned At Not on file N [facility] Start: 10-13-2018 End: 02-08-2025 Tobacco smoking status Heavy tobacco smoker (finding) [facility] Comment on above: Sts pack per day smo ker Sexual Orientation [facility] [place] Start: 09-28-2018 Sex Female (finding) [facility] Clinical Note 02-10-2025 Note Date & Type Note Facility 02-10-2025 Note General Surgery Offi ce/Clinic Note Chief Complaint consultation for cyst HPI Staff 49 year old female presents on consultation from Asha Noe for left upper chest wall cyst. Reports this has been present for approximately one month. Verbalized it has been stable in size. Denies pain or discomfort. Denies bleeding or drainage. PCP expressed white discharge exam. Placed on Bactrim BID, she has 2 days remaining. 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 Review of Systems PHQ Score Initial Depression Screen Score: 0 SCORE ROS - Provider Constitutional: no fever, no sweats, no weight loss. Eyes: no glasses, no blurred vision, no visual loss. ENMT: no dentures, no hoarseness, no swallowing difficulties, no hearing loss, no ear infection(s), no nose bleeds. Cardiovascular: normal blood pressure, no chest pain, regular heartbeat, no heart murmur. Respiratory: no shortness of breath, no cough, no asthma, no wheezing. Gastrointestinal: no nausea, no vomiting, no diarrhea, no constipation, no blood in stool, no change in bowel habits, no abdominal pain, no hepatitis. Genitourinary: no kidney stones, no urine infection, no dysuria. Musculoskeletal: no pain, no weakness. Skin: no changing moles, no rash, yes skin lumps. Neurologic: no seizures, no epilepsy, no headache. Psychiatric: no emotional or psychiatric problem. Heme/Lymph: no bleeding problems, no anemia, no blood clots, no transfusions. Allergy/Immunologic: no swollen lymph nodes/glands, no IV drug abuse. Other: Additional ROS info: Except as noted in the above Review of Systems and in the History of Present Illness, all other systems have been reviewed and are negative or noncontributory. Physical Exam Vitals & Measurements HR: 86(Peripheral) RR: 16 BP: 127/86 HT: 64 in HT: 162.5 cm WT: 213.187 lb WT: 96.7 kg BMI: 36.62 HEENT: normal conjunctiva, sclera clear, no scleral icterus, EOM intact, PERRLA. oral mucosa moist without lesions Neck: trachea midline , no mass, symmetric, no thyromegaly or nodules. no adenopathy Respiratory: lungs CTA, respirations non labored. Cardiovascular: regular rate and rhythm, no murmur, , no pedal edema or varicosities. Musculoskeletal: normal gait, digits and nails without infection, nodes, cyanosis, clubbing. Skin: no rashes, no lesions, no ulcers, left mid inframammary fold with 1.5 cm epidermal cyst, central pore, nontender, no skin changes or drainage. Psychiatric/Neuro: oriented to time, place, person, judgement normal, affect appropriate for age, insight intact, no focal deficits. Tests: review of old records completed , Discussed surgical options, risks, and possible complications with patient. Assessment/Plan 1. Epidermal cyst (L72.0: Epidermal cyst) plan excisional biopsy epidermal cyst left inframammary fold under anesthesia, informed consent obtained. Ancef 2 gms IV prior to OR. Follow-up No qualifying data available Problem List/Past Medical History Ongoing Allergic rhinitis BMI 36.0-36.9,adult Class 3 obesity Depression Epidermal cyst Essential hypertension GERD (gastroesophageal reflux disease) Hypothyroidism Mixed hyperlipidemia Smoker Type 2 diabetes mellitus Historical Depression HTN (hypertension) Procedure/Surgical History Arthroscopic chondroplasty of knee joint (05/02/2020), Arthroscopy of knee (05/02/2020), Appendectomy, Bone spur, , Ovarian cystectomy, Plantar fasciotomy, CON BSO - Total abdominal hysterectomy and bilateral salpingo-oophorectomy. Medications Ambien 10 mg Tab, 10 mg= 1 tab(s), Oral, Once a day (at bedtime), PRN Morning View Thyroid 120 mg Tab, 120 mg= 1 tab(s), Oral, Daily atorvastatin 40 mg Tab, 40 mg= 1 tab(s), Oral, Daily cyclobenzaprine 10 mg Tab, 10 mg= 1 tab(s), Oral, TID, PRN Flonase 0.05 mg/inh Martin, 2 spray(s), Nasal, Daily gabapentin 300 mg Cap, 300 mg= 1 cap(s), Oral, TID hydrochlorothiazide 50 mg Tab, 50 mg= 1 tab(s), Oral, Daily irbesartan 150 mg Tab, 150 mg= 1 tab(s), Oral, Daily Ozempic 8 mg/3 mL (2 mg dose) subcutaneous solution, 2 mg, SubCutaneous, qWeek potassium chloride 20 mEq ER Tab, 20 mEq= 1 tab(s), Oral, Daily venlafaxine 150 mg Cap-ER, 150 mg= 1 cap(s), Oral, Daily venlafaxine 150 mg Cap-ER, 150 mg= 1 cap(s), Oral, Daily Xanax 0.25 mg Tab, 0.25 mg= 1 tab(s), Oral, TID, PRN Allergies Rybelsus (unknown) metFORMIN (Vomiting, Nausea) Social History Alcohol - Denies Alcohol Use, 06/06/2013 Current, 10/13/2018 Substance Abuse - Denies Substance Abuse, 06/06/2013 Current, 10/13/2018 Tobacco - Medium Risk, 04/28/2020 10 or more cigarettes (1/2 pack or more)/day in last 30 days Tob (more content not included)... [facility] Comment on above: Result Comment: Elec tronically Signed By: URIEL WONG, Bernard Coronel.deepa\Date and Time Signed: 02/10/25 18:15 EDT History of Present illness Narrative 08-17-2023 Adonis Hand DPM FAC[facility]AS - 08/17/2023 2:10 PM EST Note Date & Type Note Facility 08-17-2023 History of Presen t illness Narrative Images from the original note were not included. Patient: David Oconnor : 1975 PCP: No primary care provider on file. SUBJECTIVE This is a 48 y.o. female that presents today for follow-up of plantar fasciitis right foot. They state they have been stretching and icing as directed. They relate mild to moderate improvement since their last visit. The patient rates the pain on a scale from 1-10 as an 7 with 10 being the worst pain of their life. Patient states the neuroma pain is significantly improved she had a cortisone injection last visit which helped immensely. We are awaiting her orthotic devices Allergies: No Known Allergies Past Medical History: Past Medical History: Diagnosis Date Depression ([facility]) HTN (hypertension) ([facility]) Thyroid disease ([facility]) Medications: Current Outpatient Medications: ALPRAZolam (Xanax) 0.25 MG tablet, Take 0.25 mg by mouth in the morning and 0.25 mg in the evening and 0.25 mg before bedtime., Disp: , Rfl: atorvastatin (Lipitor) 40 MG tablet, Take 40 mg by mouth in the morning., Disp: , Rfl: cyclobenzaprine (Flexeril) 10 MG tablet, Take 10 mg by mouth in the morning and 10 mg before bedtime., Disp: , Rfl: diclofenac sodium 1 % gel, Apply 2 g topically in the morning and 2 g in the evening and 2 g before bedtime., Disp: 180 g, Rfl: 2 gabapentin (Neurontin) 300 MG capsule, Take 300 mg by mouth in the morning and 300 mg in the evening and 300 mg before bedtime., Disp: , Rfl: glipiZIDE (Glucotrol) 5 MG tablet, Take 5 mg by mouth in the morning., Disp: , Rfl: hydroCHLOROthiazide (HYDRODiuril) 50 MG tablet, Take 50 mg by mouth in the morning., Disp: , Rfl: irbesartan (Avapro) 150 MG tablet, Take 150 mg by mouth in the morning and 150 mg before bedtime., Disp: , Rfl: meloxicam (Mobic) 15 MG tablet, Take 1 tablet (15 mg) by mouth in the morning. 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 for sleep, Disp: , Rfl: Review of systems: Constitutional: Denies fever, chills, nausea, vomiting GI: Denies abdominal pain, cramping, loose stool, gastric ulcers Musculoskeletal: Denies low back pain, knee pain, systemic arthritis Neurologic: Denies burning, tingling, transient paralysis OBJECTIVE Physical Examination: DERM: Positive hair growth to b/l feet with good skin turgor noted. Negative openings in skin VASC: DP /PT were palpable bilateral. Capillary refill time < 3 seconds Digits 1-5 bilateral NEURO: Marquette Arielle 5.07 monofilament was intact B/L. Vibratory sensation was intact B/L Musculoskeletal: Muscle strength was +5 over 5 all intrinsic and extrinsic muscles tested. There is less pain with direct palpation of the medial band of the plantar fascia right foot. Mild pain throughout the course of the plantar fascia. No palpable deficits or ecchymosis noted within the plantar fascial band. There is no pain with lateral compression of the heel. Patient has a mild gastrocnemius-soleus equinus with mild tenderness noted at the level of the Achilles tendon. No palpable deficits noted within the Achilles tendon. No pain with range of motion of the ankle or subtalar joint. No pain with direct palpation of the interspace bilaterally no neuroma pain noted. Neuroma appears to have resolved ASSESSMENT 1. Nuno's neuroma of left foot 2. Nuno neuroma, right 3. Plantar fasciitis 4. Type II diabetes mellitus with neurological manifestations ([facility]) PLAN The patient was educated on the etiology of plantar fasciitis. I recommended the patient continue stretching and icing on a regular basis. I recommended another injection consisting of 1 cc of 2% lidocaine plain and 1 cc of Kenalog 10 via ultrasonic guidance into the medial and central bands of the plantar fascia. Ultrasound was necessary to ensure exact placement into the medial and central bands of the plantar fascia and avoid injection into the plantar fat pad. Neuroma has resolved recommended orthotic devices waiting for precertification from her insurance company she is to continue stretching and icing on a regular basis. 1. A diabetic foot exam was performed and the patient was educated on the foot complications related to diabetes. Instructed to contact our office if any foot problems develop before next visit. 2. Patient was instructed on the continued importance of diabetic foot care along with proper diet and keeping their blood sugar under control to prevent complications. 3. I also educated the patient on diabetic peripheral neuropathy both sensory as well as autonomic neuropathy. I recommended routine inspections of their feet on a regular basis to prevent long-term foot problems related to diabetic ulcerations. NAGA Rosado documented in this encounter [facility] Evaluation note 06-08-2022 Note Date & Type Note Facility 06-08-2022 Evaluation note Encounter Date Diagnosis Assessment Notes May, Contact with and (suspected) exposure to other viral communicable diseases (ICD-10 - Z20.828) May, COVID-19 (ICD-10 - U07.1) Today you tested positive for the COVID virus. This mean you need to follow all CDC quarantine guidelines found at coronavirus[place].gov. It is important to rest, increase fluids, and stay at home. Recommend contacting primary care provider and discussing best course of action if you have chronic health conditions. COVID POSITIVE education handout discharge instructions. given., Discharge Instructions for COVID-19 (Suspected or Confirmed ) material was printed, Discharge Instructions for COVID-19 (Suspected or Confirmed ) material was printed May, Bronchitis (ICD-10 - J40) Take medications as directed. Rest and increase fluid intake. Take meds with food to prevent stomach upset. Use inhaler as needed for coughing spells and SOB. It is better to use inhaler a few times a day over the next 2-3 days. Follow up with primary care provider if symptoms do not improve with treatment plan, although it may take a few weeks for the cough to go away May, Right acute otitis media (ICD-10 - H66.91) Ear infections are often a secondary infection caused from an URI, the flu or allergies. Take medication as directed. Complete all doses, even if you feel better. Tylenol or ibuprofen can help with pain. Warm pack to area for comfort helps as well. Follow up with primary care provider if no improvement of symptoms. [employer] Other Evaluation + Plan note Note Date & Type Note Facility Evaluation + Plan note No data available for this section [facility] Evaluation + Plan note Radiology Note Date & Type Note Facility Evaluation + Plan note Future Appointments Appointment Date:03/01/2025 03:30:00 PM Scheduled Provider: Location:[facility] Appointment Type:MA Screen (FT) Future Scheduled TestsMA Mamm Screen w/CAD if perf and 3D Joe 03/01/25 [facility] [place] Evaluation note Note Date & Type Note Facility Evaluation note No assessment information availa [facility] Work Phone: Evaluation note Note Date & Type Note Facility Evaluation note Diagnosis Type II diabetes mellitus with neurological manifestations (CMS/HCC)- Primary Type II or unspecified type diabetes mellitus with neurological manifestations, not 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, right Plantar fasciitis Plantar fascial fibromatosis documented in this encounter [facility] History general Narrative - Reported Note Date & Type Note Facility History general Narrative - Reported Type Medical History hypertension Medical History thyroid disease [employer] Other Hospital Discharge instructions Note Date & Type Note Facility Hospital Discharge instructions No data available for this section [facility] Progress note Note Date & Type Note Facility Progress note No data available for this section [facility] Summary Purpose Family History No Family History Records FoundNo Family History Records Found No data available for this section No Family History Records Found No data available for this section No Family History Records Found Advance Directives No Advanced Directives Records Found Advance Directive Response Recorded Date/ Time Advance Directives No May 5:19pm Chief Complaint and Reason for Visit Chief Complaint bilat foot pain nki Additional Source Comments INFORMATION SOURCE (unrecogn ized section and content) DATE CREATED AUTHOR 04/11/2022 [facility] DATE CREATED AUTHOR AUTHOR'S ORGANIZ ATION 05/26/2023 [facility] DATE CREATED AUTHOR AUTHOR'S ORGANIZ ATION 01/04/2024 [facility] EPIC DATE CREATED AUTHOR AUTHOR'S ORGANIZ ATION 02/12/2025 [facility] REASON FOR VISIT (unrecogniz ed section and content) Reason Comments Neuroma F/U B/L neuroma inje ctions Care Teams (unrecognized sec tion and content) Team Status: Active Member Role Status Dates Asha Rivera NP Primary Care Provider Active Team Status: Inactive Member Role Status Dates Danny Tee PA-C Emergency Provider Active Asha Rivera NP Primary Care Provider Active [employer] Relationship Specialty Start Date End Date Asha Rivera MD [address] [place] [phone] Referring Physician Family Medicine 06/22/23 [employer] Relationship Specialty Start Date End Date Asha Rivera MD [address] [place] [phone] Referring Physician Family [facility] 06/22/23 Goals (unrecognized section and content) Goals may be documented in a n alternate section FOR RECORDS PERTAINING TO PATIENTS WHO ARE OR HAVE BEEN ENROLLED IN A CHEMICAL DEPENDENCY/SUBSTANCEABUSE PROGRAM, SOME INFORMATION MAY BE OMITTED. This clinical summary was aggregated from multiple sources. Caution should be exercised in using it in the provision of clinical care. This summary normalizes information from multiple sources, and as a consequence, information in this document may materially change the coding, format and clinical context of patient data. In addition, data may be omitted in some cases. CLINICAL DECISIONS SHOULD BE BASED ON THE PRIMARY CLINICAL RECORDS. [facility] [employer] [facility]. provides no warranty or guarantee of the accuracy or completeness of information in this document.
[2025-02-19 14:22] LABS: Anion Gap 11.9; Blood Urea Nitrogen 11.0 mg/dL (7.0-18.0); Calcium 9.0 mg/dL (8.5-10.1); Carbon Dioxide 30.5 mmol/L (21.0-32.0); Chloride 103 mmol/L (98-107); Estimated GFR (African America >60 (>=60 mL/min/1.73m^2); Estimated GFR (Non-African Ame >60 (>=60 mL/min/1.73m^2); Glucose 123 mg/dL (74-106); Potassium 3.4 mmol/L (3.5-5.1); Sodium 142 mmol/L (136-145)
== END 2025-02-19 13:16 | disposition home or self-care (01) ==
PROVIDERS: Visit Provider Surgery
DX: Z01.810 Encounter for preprocedural cardiovascular examination (principal); Z01.812 Encounter for preprocedural laboratory examination; L72.0 Epidermal cyst
CPT/HCPCS: 80048; 93005

== ENCOUNTER 2025-03-06 07:57 | Day surgery (SDC) | payer OTHER, SELFPAY ==
[2025-02-19 13:43] VITALS: BP 148/81; PULSE 72; TEMP 36.4; O2SAT 98; BMI 36.0
[2025-03-06] VITALS (12 sets, daily range): BP systolic 99–133; BP diastolic 71–105; PULSE 68–90; TEMP 36.1–36.3; O2SAT 92–96; BMI 34.9
--- NOTE | 2025-03-06 | OP_ITS ---
OPERATION DATE: 03/06/2025 PREOPERATIVE DIAGNOSIS: Inflamed epidermal cyst left inframammary crease. POSTOPERATIVE DIAGNOSIS: Ruptured epidermal cyst left inframammary crease. PROCEDURE: Excisional biopsy ruptured epidermal cyst left inframammary crease. Total length of the incision 3 cm. SURGEON: Bernard Ortega M.D. ANESTHESIA: General with laryngeal mask airway as well as local with 0.5% Marcaine plain. ESTIMATED BLOOD LOSS: Less than 10 mL. INDICATIONS AND CONSENT: Patient is a 49-year-old female with a one month history of an inflamed cyst of the left inframammary crease. She did develop drainage and infection that was treated with antibiotics, which subsequently resolved. Currently, she has no infection but does have induration around the area. Indications, risks, benefits, alternatives of proceeding with excisional biopsy under anesthesia were explained extensively to the patient, including the risks of bleeding, infection, scarring, pain, recurrence, need for further surgery or anesthetic complications. All of her questions were answered. Informed consent was obtained. PROCEDURE: Patient brought to the operating room, placed in the supine position. General anesthesia was induced. She was prepped and draped in the usual sterile fashion. The area of the cyst, as well as the indurated area in the left mid inframammary fold was excised in elliptical fashion. Total length of the incision 3 cm. It was carried down through subcutaneous tissue using sharp dissection. There was a contained, ruptured cyst with no infection. This area of the cyst was completely excised using needle tip electrocautery. It was sent off to pathology. The wound was irrigated. Hemostasis was achieved with needle tip electrocautery. The subcutaneous tissue was re-approximated with interrupted 3-0 Monocryl suture. The skin was then closed with a running 4-0 subcuticular Monocryl suture and skin glue. Sterile pressure dressing was applied. Sponge and needle counts were correct x2 per nursing personnel. Patient tolerated procedure well, was sent to Recovery Room in good condition. CC: Patient?s family physician CLAUDE
--- OUTSIDE RECORDS SUMMARY | 2025-03-06 08:22 | XMS_ITS | CCD ---
Author Organization [facility] Inform ion [facility] Care Team Providers Care Fuselage Framer Name Role Phone DR JOSE L ROMERO Attending Unavailable HEATHER, DR JOSE L Jason Consulting Unavailable HEATHER, DR JOSE L Jason Admitting Unavailable ANDRES WOLF Consulting Unavailable Arely Clemens Unavailable HEIDI Tee Emergency Provider [phone] GUILLE Rivera Primary Care Provider Danny Tee Admitting Unavailable Danny Tee Attending Unavailable Asha Rivera Primary Care Unavailable Asha Rivera MD Unavailable Asha Rivera Primary Care Physician [phone] DOLADONIS FLORES Attending Unavailable DOLCE, ADONIS Obando [...] [metformin] Drug Allergy Vomiting (disorder), Nausea (finding) [facility] [place] (2 sources) [employer]; Translations: [semaglutide] Drug allergy unknown [facility] Surgery [place] Medications Current Medications Medication Drug Class(es) Dates [...] tablet (1 source) Opioid Agonist Start: 05-02-2020 [place] 325 mg-5 mg oral tablet See Instructions, for pain, 40 tab(s), Refill(s) 0, 1 - 2 po q4-6h prn pain Dx: m17.11 Duration: 7 days, [facility]/pharmacy #[id number], 162, cm, 04/28/20 13:15:00 EDT, Height/Length Dosing, 113.6, kg, 04/28/20 13:15:00 EDT, Weight Dosing Start Date: 05/02/20 Status: Ordered acetaminophen 325 mg / oxyCODONE hydrochloride 5 mg oral tablet (1 source) Opioid Agonist Start: 05-24-2023 take 1 tablet by mouth every six hours Oxycodone-Acetami nophen (Percocet) 5-325 mg tablet Active 1 TAB PO Q6H 10 May 24, 2023 [id number] 200 actuat albuterol 0.09 mg/actuat metered dose [...] Daily, # 21 tab(s), Refills(s) 0, Pharmacy: [facility]/pharmacy #[id number], 162, cm, 04/28/20 13:15:00 EDT, [...] Contrave 8-90 MG (Pr ior Auth: Rx Ref#:[id number]) Oral for 30 Active cyclobenzaprine hydrochloride 10 [...] Oxa late 20 MG (Prior Auth: Rx Ref#:[id number]) Oral for 30 Active fluticasone propionate 0.05 mg/actuat metered dose nasal spray (1 source) Corticosteroid Start: 02-04-2025 Flonase 0.05 mg/inh [place] 2 spray(s), Nasal, Daily, Refill(s) 0 Start [...] Potassium-H CTZ 100-25 MG (Prior Auth: Rx Ref#:[id number]) Oral for 30 Active irbesartan 150 mg [...] day for 6 days May, Active thyroid (alf) 120 mg oral tablet (5 sources) Start: 04-28-2020 take 1 tablet by mouth once daily Scalf Thyroid 120 mg Tab 120 mg = [...] number: 1 take 1 capsule by mo [facility] every twenty-four hours in the morning [...] Repeat number: 1 take 1 tablet by [facility] at bedtime for sleep zolpidem (Ambien) [...] mg Tab) fluticasone nasal (Flonase 0.05 mg/inh [place]) gabapentin (gabapentin 300 mg Cap) hydrochlorothiazide (hydrochlorothiazide 50 mg Tab) irbesartan (irbesartan 150 mg Tab) potassium chloride (potassium chloride 20 mEq ER Tab) semaglutide (Ozempic 8 mg/3 mL (2 mg dose) subcutaneous solution) thyroid desiccated (Scalf Thyroid 120 mg Tab) venlafaxine (venlafaxine 150 [...] Unchanged fluticasone nasal (Flonase 0.05 mg/ inh [place]) 2 Sprays Nasal Inhalation Every day Contact [...] if questions or concerns Unchanged thyroid desiccated (Scalf Thyroid 120 mg Tab) 1 Tablets By [...] signed up for this yet, please contact [employer] at [phone] to get signed up today. Language Information Language assistance services are available as needed. Normal [facility] XR CHEST 2 VIEWSon 4 XR CHEST [...] BI 3Von 05-24-2023 XR foot BI 3V [facility] Main [place] [address] [place] [address] XRay Report Signed Patient: David Oconnor MR#: [id number] : 1975 Acct:[id number] Age/Sex: 48 / F ADM Date: 05/24/23 Loc: ER Room: Type: [facility] ER Attending Dr: Copies to: Danny [...] L Zavaleta M.D.05/24/2023 6:35 PM Dictation Location: [place] [address] Transcribed By: [facility] 05/24/231834 Dictated By: Jose L Zavaleta II, MD 05/24/231833 Signed By: 05/24/231834 Normal [facility] COVID/FLU RT-PCRon SARS-CoV-2 (COVID-19) RNA SCARLETT+probe Ql (Unsp spec) Positive [facility] [employer] Other COVID/FLU RT-PCR Negative [facility] [employer] Other CBC AUTO DIFFon 2022 BASO # 0.1 103/ul Normal 0.0-0.1 [facility] Comment on above: Performed By: #### C BC #### [facility] [address] [place] [address] Dr. Dana Mckoen Basophils/100 WBC (Bld) 0.7 % Normal 0.2-2.0 [facility] Comment on above: Performed By: #### C BC #### [facility] [address] [place] [address] Dr. Dana Mckeon EO # 0.4 103/ul Normal 0.0-0.7 [facility] Comment on above: Performed By: #### C BC #### [facility] [address] [place] [address] Dr. Dana Mckeon Eosinophils/100 WBC (Bld) 2.2 % Normal 0.9-7.0 [facility] Comment on above: Performed By: #### C BC #### [facility] [address] [place] [address] Dr. Dana Mckeon Erythrocyte distribution width (RBC) [Ratio] 13.7 % Normal 11.0-15.0 [facility] Comment on above: Performed By: #### C BC #### [facility] [address] [place] [address] Dr. Dana Mckeon Hematocrit (Bld) [Volume fraction] 48.5 % Critically high 36.0-48.0 [facility] Comment on above: Performed By: #### C BC #### [facility] [address] [place] [address] Dr. Dana Mckeon Hemoglobin (Bld) [Mass/Vol] 16.0 g/dL Normal 12.0-16.0 [facility] Comment on above: Performed By: #### C BC #### [facility] [address] [place] [address] Dr. Dana Mckeon IG # 0.06 10e3/ul Critically high 0.00-0.[address] [facility] Comment on above: Performed By: #### C BC #### [facility] [address] [place] [address] Dr. Dana Mckeon IG % 0.4 % Normal 0.0-0.5 [facility] Comment on above: Performed By: #### C BC #### [facility] [address] [place] [address] Dr. Dana Mckeon LYMPH # 1.9 103/ul Normal 1.2-3.8 [facility] Comment on above: Performed By: #### C BC #### [facility] [address] [place] [address] Dr. Dana Mckeon Lymphocytes/100 WBC (Bld) 12.0 % Critically low 20.5-60.0 [facility] Comment on above: Performed By: #### C BC #### [facility] [address] [place] [address] Dr. Dana Mckeon MANUAL DIFF REQ NO Normal [facility] Comment on above: Performed By: #### C BC #### [facility] [address] [place] [address] Dr. Dana Mckeon MCH (RBC) [Entitic mass] 28.8 pg Normal 26.7-34.0 [facility] Comment on above: Performed By: #### C BC #### [facility] [address] [place] [address] Dr. Dana Mckeon MCHC (RBC) [Mass/Vol] 33.0 g/dL Normal 29.9-35.2 [facility] Comment on above: Performed By: #### C BC #### [facility] [address] [place] [address] Dr. Dana Mckeon MCV (RBC) [Entitic vol] 87.2 fL Normal 81.0-99.0 [facility] Comment on above: Performed By: #### C BC #### [facility] [address] [place] [address] Dr. Dana Mckeon MONO # 0.7 103/ul Normal 0.3-0.8 [facility] Comment on above: Performed By: #### C BC #### [facility] [address] [place] [address] Dr. Dana Mckeon Monocytes/100 WBC (Bld) 4.4 % Normal 1.7-12.0 [facility] Comment on above: Performed By: #### C BC #### [facility] [address] [place] [address] Dr. Dana Mckeon NEUT # 12.9 103/ul Critically high 1.4-6.5 [facility] Comment on above: Performed By: #### C BC #### [facility] [address] [place] [address] Dr. Dana Mckeon Neutrophils/100 WBC (Bld) 80.3 % Critically high 43.0-75.0 [facility] Comment on above: Performed By: #### C BC #### [facility] [address] [place] [address] Dr. Dana Mckeon Platelet mean volume (Bld) [Entitic vol] 10.2 fL Normal 9.5-13.5 [facility] Comment on above: Performed By: #### C BC #### [facility] [address] [place] [address] Dr. Dana Mckeon PLT 324 103/ul Normal 150-450 [facility] Comment on above: Performed By: #### C BC #### [facility] [address] [place] [address] Dr. Dana Mckeon RBC 5.56 106/ul Critically high 4.20-5.40 [facility] Comment on above: Performed By: #### C BC #### [facility] [address] [place] [address] Dr. Dana Mckeon WBC 16.1 103/ul Critically high 4.0-11.0 [facility] Comment on above: Performed By: #### C BC #### [facility] [address] [address] [address] Dana Mckeon PROF 14(COMP METB)on 022 Albumin [Mass/Vol] 4.0 g/dL Normal 3.4-5.0 [facility] Comment on above: Performed By: #### C MP #### [facility] [address] [place] [address] Dr. Dana Mckeon Albumin/Globulin [Mass ratio] 0.9 {ratio} Normal [facility] Comment on above: Performed By: #### C MP #### [facility] [address] [place] [address] Dr. Dana Mckeon ALP [Catalytic activity/Vol] 99 U/L Normal 46-116 [facility] Comment on above: Performed By: #### C MP #### [facility] [address] [place] [address] Dr. Dana Mckeon ALT [Catalytic activity/Vol] 45 U/L Normal 14-59 [facility] Comment on above: Performed By: #### C MP #### [facility] [address] [place] [address] Dr. Dana Mckeon Anion gap [Moles/Vol] 15.9 mmol/L Normal [facility] Comment on above: Performed By: #### C MP #### [facility] [address] [place] [address] Dr. Dana Mckeon AST [Catalytic activity/Vol] 25 U/L Normal 15-37 [facility] Comment on above: Performed By: #### C MP #### [facility] [address] [place] [address] Dr. Dana Mckeon Bilirubin [Mass/Vol] 0.3 mg/dL Normal 0.2-1.0 [facility] Comment on above: Performed By: #### C MP #### [facility] [address] [place] [address] Dr. Dana Mckeon Calcium [Mass/Vol] 9.6 mg/dL Normal 8.5-10.1 [facility] Comment on above: Performed By: #### C MP #### [facility] [address] [place] [address] [address] Dana Mckeon Chloride [Moles/Vol] 100 mmol/L Normal 98-107 [facility] Comment on above: Performed By: #### C MP #### [facility] [address] [place] [address] [address] Dana Mckeon CO2 [Moles/Vol] 28.9 mmol/L Normal 21.0-32.0 [facility] Comment on above: Performed By: #### C MP #### [facility] [address] [place] [address] [address] Dana Mckeon Creatinine [Mass/Vol] 0.98 mg/dL Normal 0.55-1.02 [facility] Comment on above: Performed By: #### C MP #### [facility] [address] [place] [address] Dr. Dana Mckeon EGFR-AF MONEGASQUE >60 Normal >=60 [facility] Comment on above: Performed By: #### C MP #### [facility] [address] [place] [address] Dr. Dana Mckeon EGFR-NON AF MONEGASQUE 60 mL/min/1.73m2 Normal >=60 [facility] Comment on above: Performed By: #### C MP #### [facility] [address] [place] [address] Dr. Dana Mckeon Globulin (S) [Mass/Vol] 4.3 g/dL Normal [facility] Comment on above: Performed By: #### C MP #### [facility] [address] [place] [address] Dr. Dana Mckeon Glucose [Mass/Vol] 146 mg/dL Critically high 74-106 [facility] Comment on above: Performed By: #### C MP #### [facility] [address] [place] [address] Dr. Dana Mckeon Potassium [Moles/Vol] 3.8 mmol/L Normal 3.5-5.1 [facility] Comment on above: Performed By: #### C MP #### [facility] [address] [place] [address] Dr. Dana Mckeon Protein [Mass/Vol] 8.3 g/dL Critically high 6.4-8.2 [facility] Comment on above: Performed By: #### C MP #### [facility] [address] [address] [address] Dana Mckeon Sodium [Moles/Vol] 141 mmol/L Normal 136-145 [facility] Comment on above: Performed By: #### C MP #### [facility] [address] [address] [address] Dana Mckeon Urea nitrogen [Mass/Vol] 13.0 mg/dL Normal 7.0-18.0 [facility] Comment on above: Performed By: #### C MP #### [facility] [address] [address] [address] Dana Mckeon Urea nitrogen/Creatini ne [Mass ratio] 13.3 mg/mg Normal [facility] Comment on above: Performed By: #### C MP #### [facility] [address] [address] [address] Dana Mckeon XR CHEST 1 Von [...] by: ANDRES WOLF Date: 2022 01:08 Normal [facility] Vital Signs Date Time Vital Sign Value Performing Clinician Facility 08-17-2023 14:11-0500 Body height 162.6 cm Adonis Hand DPM FACFAS Work Phone: [facility] 08-17-2023 14:11-0500 Body mass index (BMI) [Ratio] 38.45 kg/m2 Adonis Hand DPM FACFAS Work Phone: [facility] 08-17-2023 14:11-0500 Body weight 101.61 kg Adonis Hand DPM FACFAS Work Phone: [facility] 08-17-2023 14:11-0500 Diastolic blood pressure 77 mm[Hg] Adonis Hand DPM FACFAS Work Phone: [facility] 08-17-2023 14:11-0500 Heart rate 74 /min Adonis Hand DPM FACFAS Work Phone: [facility] 08-17-2023 14:11-0500 Systolic blood pressure 131 mm[Hg] Adonis Hand DPM FACFAS Work Phone: [facility] 05-24-2023 17:09-0500 Body height 165.1 cm PA-C Danny Tee Work Phone: [facility] 05-24-2023 17:09-0500 Body temperature 97.7 [degF] PA-C Danny Tee Work Phone: [facility] 05-24-2023 17:09-0500 Body weight 110.3 kg PA-C Danny Tee Work Phone: [facility] 05-24-2023 17:09-0500 Diastolic blood pressure 95 mm[Hg] PA-C Danny Tee Work Phone: [facility] 05-24-2023 17:09-0500 Heart rate 86 /min PA-C Danny Tee Work Phone: [facility] 05-24-2023 17:09-0500 Respiratory rate 18 /min PA-C Danny Tee Work Phone: [facility] 05-24-2023 17:09-0500 SaO2% (BldA) [Mass fraction] 98 % PA-C Danny Tee Work Phone: [facility] 05-24-2023 17:09-0500 Systolic blood pressure 154 mm[Hg] PA-C Danny Tee Work Phone: [facility] 06-08-2022 16:00-0500 Body height 162.56 cm Arely Clemens Other [facility] [employer] Other 06-08-2022 16:00-0500 Body temperature 98.1 [degF] Arely Clemens Other [employer] Other 06-08-2022 16:00-0500 Respiratory rate 18 /min Arely Clemens Other [employer] Other 06-08-2022 16:00-0500 SaO2% (BldA) [Mass fraction] 98 % Arely Clemens Other [employer] Other Encounters Encounter Date Encounter Type Care Provider Facility Start: 02-08-2025 End: 02-08-2025 ambulatory ASHACUCO NOE Facility:[facility] Start: 02-08-2025 End: 02-08-2025 Patient encounter procedure Bernard TREVINO [facility] [place] Start: 01-31-2025 ambulatory ASHA NOE Facility :[facility] Start: 01-03-2024 End: 01-03-2024 ambulatory ADONIS D DOLCE Not Available Start: 12-27-2023 End: 12-27-2023 Patient encounter procedure Adonis D Blaynece [facility] Start: 12-27-2023 End: 12-27-2023 ambulatory ADONIS D [...] 05-24-2023 Emergency department patient visit Danny Tee Facility:[facility] Start: 05-24-2023 End: 05-24-2023 Emergency department patient visit HEIDI Tee Work Phone: [facility] Work Phone: Start: 06-08-2022 End: 06-08-2022 ambulatory Arely Clemens Other [employer] Other Start: 06-08-2022 Office outpatient vi sit 15 minutes Arely Clemens [facility] Start: 2022 End: 2022 [...] Mi miranda TREVINO Fasciotomy of foot Bernard MCWILLIAMS Hysterectomy Adonis Hand Osteophyte of bone (disorder) Bernard DENTONGurwinder Total abdominal hysterectomy with bilateral salpingo-oophorectomy Bernard TREVINO Plan of Treatment Date Care Activity Detail Author Start: 09-07-2023 End: 09-07-2023 Clinical Support 09/07/2023 2:00 PM EST Clinical Support [facility] [address] [place] [address] Adonis Hand, DPM FACFAS [address] [place] [address] [facility] Start: 08-17-2023 End: 08-17-2023 Clinical Support 08/17/2023 2:10 PM EST Clinical Support [facility] [address] [place] [address] Adonis Hand, DPM FACFAS [address] [place] [address] Arrived [facility] Comment on above: Arrived Start: 05-24-2023 X-ray of both feet XR foot BI 3V [facility] Start: 05-24-2023 XR Foot - bilateral 3 Views [facility] Patient Education Peripheral Neuropathy [facility] Work Phone: Patient referral [facility] Work Phone: Payers Date Payer Category Payer Private Health Insurance 8ed [id number] 2025 Private Health Insurance [id number] 2023 Unknown [id number] 2023 Self-pay 2021 Unknown BCBS BCBS [id number] 2021-Present [phone] [address] [place] [address] [id number] 1975 Unknown [id number] 2.16.840.1.507365.3.579.2 .593 1975 Unknown [id number] 2.16.840.1.035621.3.579.2 .1258 1975 Unknown [id number] 2.16.840.1.419982.3.579.2 .1258 1975 Unknown [id number] 2.16.840.1.845183.3.579.2 .1258 1975 Unknown [id number] 2.16.840.1.210315.3.579.2 .1258 1975 Unknown [id number] 2.16.840.1.545923.3.579.2 .1258 1975 Unknown [id number] 2.16.840.1.738279.3.579.2 .1258 1975 Unknown [id number] 2.16.840.1.046749.3.579.2 .1258 1975 Unknown [id number] 2.16.840.1.363087.3.579.2 .1258 1975 Unknown [id number] 2.16.840.1.423484.3.579.2 .1258 1975 Unknown [id number] 2.16.840.1.621511.3.579.2 .1258 1975 Unknown [id number] 2.16.840.1.850190.3.579.2 .1258 1975 Unknown [id number] 2.16.840.1.686446.3.579.2 .1259 1975 Unknown [id number] 2.16.840.1.839758.3.579.2 .9 1975 Unknown [id number] 2.16.840.1.244597.3.579.2 .1259 1975 Unknown [id number] 2.16.840.1.072462.3.579.2 .1258 1975 Unknown [id number] 2.16.840.1.707450.3.579.2 .1259 1975 Unknown [id number] 2.16.840.1.801525.3.579.2 .727 1975 Unknown [id number] 2.16.840.1.622013.3.579.2 .727 1961 Unknown [id number] Unknown [id number] 2.16.840.1.825003.3.579.2 .531 Social History Date Type Detail Facility Start: 05-19-2023 End: 08-17-2023 Sex Assigned At [facility] Start: 05-24-2023 Tobacco smoking stat [facility] Smoker (finding) [facility] Start: 1975 Sex Assigned At Female F [facility] Start: 01-08-2011 [facility] Start: 01-08-2011 [...] caffeine intak e: 2-3 cups per day [facility] Start: 1975 Sex Assigned At Not on file N [facility] Start: 10-13-2018 End: 02-08-2025 Tobacco smoking status Heavy tobacco smoker (finding) [facility] Comment on above: Sts pack per day smo ker Sexual Orientation [facility] [place] Start: 09-28-2018 Sex Female (finding) [facility] Clinical Note 02-10-2025 Note Date & Type [...] drainage, some white drainage when squeezed by HOSPITAL RECEIVING CLERK; no h/o other similar cysts; under left [...] Oral, Once a day (at bedtime), PRN Scalf Thyroid 120 mg Tab, 120 mg= 1 tab(s), Oral, Daily atorvastatin 40 mg Tab, 40 mg= 1 tab(s), Oral, Daily cyclobenzaprine 10 mg Tab, 10 mg= 1 tab(s), Oral, TID, PRN Flonase 0.05 mg/inh [place], 2 spray(s), Nasal, Daily gabapentin 300 mg [...] 30 days Tob (more content not included)... [facility] Comment on above: Result Comment: Elec tronically [...] History: Past Medical History: Diagnosis Date Depression ([facility]) HTN (hypertension) ([facility]) Thyroid disease ([facility]) Medications: Current Outpatient Medications: ALPRAZolam (Xanax) 0.25 [...] PO Daily., Disp: 30 tablet, Rfl: 0 HOSPITAL RECEIVING CLERK Thyroid 120 MG tablet, Take 120 mg [...] < 3 seconds Digits 1-5 bilateral NEURO: [place] Arielle 5.07 monofilament was intact B/L. Vibratory [...] Type II diabetes mellitus with neurological manifestations ([facility]) PLAN The patient was educated on the [...] care provider if no improvement of symptoms. [employer] Other Evaluation + Plan note Note Date & Type Note Facility Evaluation + Plan note No data available for this section [facility] Evaluation + Plan note Radiology Note Date & Type Note Facility Evaluation + Plan note Future Appointments Appointment Date:03/01/2025 03:30:00 PM Scheduled Provider: Location:FT.MAMMOGRAM Appointment Type:MA Screen (FT) Future Scheduled TestsMA Mamm Screen w/CAD if perf and 3D Joe 03/01/25 [facility] [place] Evaluation note Note Date & Type Note Facility Evaluation note No assessment information availa [facility] Work Phone: Evaluation note Note [...] Medical History hypertension Medical History thyroid disease [employer] Other Hospital Discharge instructions Note Date & Type Note Facility Hospital Discharge instructions No data available for this section [facility] Progress note Note Date & Type Note Facility Progress note No data available for this section [facility] Summary Purpose Family History No Family History [...] content) DATE CREATED AUTHOR 04/11/2022 [facility] DATE CREATED AUTHOR AUTHOR'S ORGANIZ ATION 05/26/2023 [facility] DATE CREATED AUTHOR AUTHOR'S ORGANIZ ATION 01/04/2024 [facility] EPIC DATE CREATED AUTHOR AUTHOR'S ORGANIZ ATION 02/12/2025 [facility] REASON FOR VISIT (unrecogniz ed section and content) Reason Comments Neuroma F/U B/L neuroma inje ctions Care Teams (unrecognized sec tion and content) Team Status: Active Member Role Status Dates Asha Rivera NP Primary Care Provider Active Team Status: Inactive Member Role Status Dates Danny Tee PA-C Emergency Provider Active Asha Rivera NP Primary Care Provider Active Fuselage Framer Relationship Specialty Start Date End Date Asha Rivera MD [address] [place] [phone] Referring Physician Family Medicine 06/22/23 Fuselage Framer Relationship Specialty Start Date End Date Asha Rivera MD [address] [place] [phone] Referring Physician Family [facility] 06/22/23 Goals (unrecognized section and content) Goals [...] BE BASED ON THE PRIMARY CLINICAL RECORDS. [facility] [email or web address] [facility]. provides no warranty or guarantee of the accuracy or completeness of information in this document.
[2025-03-06] MEDS: CEFAZOLIN SODIUM 2 GM/50 ML D5W PREMIX IV (09:38)
[2025-03-06] MEDS: BUPIVACAINE HCL 0.5% PF 50 MG/10 ML VIAL INJ (10:28)
[2025-03-06] MEDS: HYDROCODONE/ACET 5-325 MG TABLET 1 TAB PO (10:59)
== END 2025-03-06 11:40 | disposition home or self-care (01) ==
LOC: SURGOUT 07:59
PROVIDERS: Visit Provider Surgery
PROC: (CPT 400; principal; 2025-03-06 09:00)
DX: L72.0 Epidermal cyst (principal); I10 Essential (primary) hypertension; E78.5 Hyperlipidemia, unspecified; E03.9 Hypothyroidism, unspecified; K21.9 Gastro-esophageal reflux disease without esophagitis; F32.A Depression, unspecified; F17.210 Nicotine dependence, cigarettes, uncomplicated; Z79.85 Long-term (current) use of injectable non-insulin antidiabetic drugs; Z90.710 Acquired absence of both cervix and uterus; E11.40 Type 2 diabetes mellitus with diabetic neuropathy, unspecified; F41.9 Anxiety disorder, unspecified
CPT/HCPCS: 11403; 12032; 36415; 82948; 88304; J0131; J0665; J0690; J1100; J1885; J2250; J2371; J2405; J2704

== ENCOUNTER 2025-06-21 15:58 | Emergency (ER) | payer BC, SELFPAY ==
[2025-06-21] VITALS (16 sets, daily range): BP systolic 146–175; BP diastolic 77–110; PULSE 70–76; TEMP 36.7; O2SAT 95–99; BMI 33.5
--- NOTE | 2025-06-21 17:19 | ECG_ITS ---
The [facility] Test Date: 2025-06-21 Pat Name: DAVID OCONNOR Department: Room: - Gender: Female [employer]ender: : 1975 Requested By: [id number] Order Number: [id number] Reading MD: AYANNA BRIONES M.D. Measurements Intervals Rowe Rate: 71 P: 17 CO: 172 QRS: 44 QRSD: 84 T: 60 QT: 392 QTc: 415 Interpretive Statements 1100 Sinus rhythm 9110 normal ECG Compared to ECG 02/19/2025 11:59:09 No significant changes Electronically Signed On 06-21-2025 17:26:02 EST by AYANNA BRIONES M.D.
--- NOTE | 2025-06-21 17:20 | XR_ITS ---
The [address] [address] Patient Name: DAVID OCONNOR MRN: [id number] date: 1975 Sex: F Assigned Patient Location: ER Current Patient Location: ED.MAIN Accession/Order Number: [id number] Exam Date: 06/21/2025 17:52 Report Date: 06/21/2025 18:38 At the request of: VAHID NOGUEIRA Procedure: XR chest 2V PA AND LATERAL CHEST: CLINICAL HISTORY: elevated BP COMPARISON: 04/01/2022 FINDINGS: Unremarkable cardiomediastinal silhouette. Lungs are clear. No effusion or pneumothorax. XR/XR chest 2V IMPRESSION: NO ACUTE CARDIOPULMONARY ABNORMALITY. Impression dictated by: Dewayne Rice M.D. 06/21/2025 6:38 PM Dictation Location: [place] [address] Electronically authenticated by: [id number] Y Date: 06/21/2025 18:38
[2025-06-21 17:35] LABS: Hematocrit 45.7 % (36.0-48.0); Hemoglobin 15.6 g/dL (12.0-16.0); Immature Granulocytes Abs Auto 0.03 10^3/uL (0.00-0.03); Immature Granulocytes Pct Auto 0.2 % (0.0-0.5); Lymphocytes Absolute Auto 4.7 10^3/uL (1.2-3.8); Mean Corpuscular HGB Conc 34.1 g/dL (29.9-35.2); Mean Corpuscular Hemoglobin 29.0 pg (26.7-34.0); Mean Corpuscular Volume 84.9 fL (81.0-99.0); Platelet Count 357 10^3/uL (150-450); Red Blood Count 5.38 10^6/uL (4.20-5.40); White Blood Count 12.0 10^3/uL (4.0-11.0)
[2025-06-21 17:53] LABS: INR 1.08; Partial Thromboplastin Time 25.6 sec (22.3-36.2); Prothrombin Time 11.3 sec (9.0-11.6)
[2025-06-21] MEDS: 0.9 % SODIUM CHLORIDE 1,000 ML 1000 ML IV (17:56)
[2025-06-21 18:05] LABS: Alanine Aminotransferase 28 U/L (14-59); Albumin Globulin Ratio 1.0; Albumin Level 3.7 g/dL (3.4-5.0); Alkaline Phosphatase 83 U/L (46-116); Anion Gap 8.0; Aspartate Amino Transferase 19 U/L (15-37); Blood Urea Nitrogen 8.0 mg/dL (7.0-18.0); Calcium 9.8 mg/dL (8.5-10.1); Carbon Dioxide 31.4 mmol/L (21.0-32.0); Chloride 103 mmol/L (98-107); Estimated GFR (African America >60 (>=60 mL/min/1.73m^2); Estimated GFR (Non-African Ame >60 (>=60 mL/min/1.73m^2); Globulin 3.8 g/dL; Glucose 109 mg/dL (74-106); NT Pro B Type Natriuretic Pept 69.0 pg/mL (<=900.0); Potassium 3.4 mmol/L (3.5-5.1); Sodium 139 mmol/L (136-145); Thyroid Stimulating Hormone 2.207 uIU/mL (0.358-3.740); Total Protein 7.5 g/dL (6.4-8.2)
--- OUTSIDE RECORDS SUMMARY | 2025-06-21 18:05 | XMS_ITS | CCD ---
Author Organization [facility] Care Team Providers Care Manager Oracle Name Role Phone HEATHER, DR JOSE L Jason Attending Unavailable HEATHER, DR JOSE L Jason Consulting Unavailable HEATHER, DR JOSE L Jason Admitting Unavailable ANDRES WOLF Consulting Unavailable Arely Clemens Unavailable HEIDI Tee Emergency Provider GUILLE Rivera Primary Care Provider Asha Rivera MD Unavailable [phone] Asha Rivera Primary Care Physician DOLCE, ADONIS D Attending Unavailable DOLCE, ADONIS D Attending Unavailable DOLCE, ADONIS D Referring Unavailable DOLCE, ADONIS D Attending Unavailable DOLCE, ADONIS D Attending Unavailable DOLCE, ADONIS D Attending Unavailable DOLCE, ADONIS D Attending Unavailable TESMONDCESAR Attending Unavailable DOLCE, ADONIS D Referring Unavailable DOLCE, ADONIS D Attending Unavailable DOLCE, ADONIS D Attending Unavailable DOLCE, ADONIS D Attending Unavailable DOLCE, ADONIS D Referring Unavailable DOLCE, ADONIS D Attending Unavailable DOLCE, ADONIS D Attending Unavailable DOLCE, ADONIS D Attending Unavailable Nill Bernard WONG Attending Provider Bernard Ortega Attending Unavailable Nill, Bernard Jason Admitting Unavailable ASHA NOE Referring Unavailable NILL, Bernard Jason Attending Unavailable NILL, Bernard Jason Attending Unavailable NILL, Bernard Jason Attending Unavailable Anabelle Pickens APRN Attending Provider NON STAFF Primary Care Provider Asha Antunez MD Unavailable Yvonne Phillips DO Primary Care Provider Allergies Allergy ClassificationReported Allergen(s)Allergy TypeDate of OnsetReaction(s) Facility (3 sources)metFORMIN; Translations: [metformin]Drug AllergyVomiting (disorder), Nausea (finding)[facility] [place] (3 sources)Rybelsus; Translations: [semaglutide]Drug allergyunknownFHol[facility] [place] Medications Current Medications MedicationDrug Class(es)DatesSig (Normalized)Sig (Original)3 ML semaglutide 2.68 MG/ML Pen Injector [Ozempic] (2 sources)Start: 92-73-2550ixemwx 2 mg by subcutaneous injection every week Ozempic 8 mg/3 mL (2 mg dose) subcutaneous solution 2 mg, SubCutaneous, qWeek, Refills(s) 0 Start Date: 02/04/25 Status: Ordered Repeat number: 1acetaminophen 325 mg / HYDROcodone bitartrate 5 mg oral tablet (1 source)Opioid AgonistStart: 54-09-5128Nmncn 325 mg-5 mg oral tablet See Instructions, for pain, 40 tab(s), Refill(s) 0, 1 - 2 po q4-6h prn pain Dx: m17.11 Duration: 7 days, [facility]/pharmacy #[id number], 162, cm, 04/28/20 13:15:00 EDT, Height/Length Dosing, 113.6, kg, 04/28/20 13:15:00 EDT, Weight Dosing Start Date: 05/02/20 Status: Orderedacetaminophen 325 mg / oxyCODONE hydrochloride 5 mg oral tablet (3 sources)Opioid AgonistStart: 92-38-6311oxvb 1 tablet by mouth every six hours as needed for [id number] 200 actuat albuterol 0.09 mg/actuat metered dose inhaler (1 source)beta2-Adrenergic AgonistStart: 03-56-3330ykzp 2 puff(s) by inhalation every four hours as neededAlbuterol Sulfate HFA 108 (90 Base) MCG/ACT 2 puffs as needed Inhalation every 4 hrs May, ActiveALPRAZolam 0.25 mg oral tablet (5 sources)BenzodiazepineStart: 41-39-6487toow 1 tablet by mouth three times daily as needed for anxietyXanax 0.25 mg Tab 0.25 mg = 1 tab(s), Oral, TID, PRN as needed for anxiety, Refills(s) 0 Start Date: 02/04/25 Status: Ordered Repeat number: 1amitriptyline hydrochloride 50 mg oral tablet (1 source)Tricyclic AntidepressantStart: 16-09-7029lvcw 1 tablet by mouth once daily at bedtimeamitriptyline 50 mg Tab 50 mg = 1 tab(s), Oral, Once a day (at bedtime), Depression Start Date: 04/28/20 Status: Orderedamoxicillin 875 mg oral tablet (1 source)Penicillin-class AntibacterialStart: 36-45-2017qubt 1 tablet by mouth every twelve hoursAmoxicillin 875 MG 1 tablet Orally every 12 hrs for 7 days May, Activeaspirin 325 mg delayed release oral tablet (1 source)Platelet Aggregation Inhibitor, Nonsteroidal Anti-inflammatory Drug Start: 77-20-3942toqj 1 tablet by mouth once dailyEcotrin 325 mg Tab-EC 325 mg = 1 tab(s), Oral, Daily, # 21 tab(s), Refills(s) 0, Pharmacy: [facility]/pharmacy #[id number], 162, cm, 04/28/20 13:15:00 EDT, Height/Length Dosing, 113.6, kg, 04/28/20 13:15:00 EDT, Weight Dosing Start Date: 05/02/20 Status: Orderedatorvastatin 40 mg oral tablet (7 sources)HMG-CoA Reductase InhibitorStart: 03-35-1546wook 1 tablet by mouth once dailyatorvastatin 40 mg Tab 40 mg = 1 tab(s), Oral, Daily, Refills(s) 0 Start Date: 02/04/25 Status: Ordered Repeat number: 1Start: 65-18-7746rvao 1 tablet by mouth once dailyatorvastatin 20 mg Tab 20 mg = 1 tab(s), Oral, Daily, High cholesterol Start Date: 04/28/20 Status:OrderedAtorvastatin Calcium Active 12 hr buPROPion hydrochloride 90 mg / naltrexone hydrochloride 8 mg extended release oral tablet (1 source)Opioid Antagonist, AminoketoneContrave 8-90 MG (Prior Auth: Rx Ref#:[id number]) Oral for 30 Activecyclobenzaprine hydrochloride 10 mg oral tablet (5 sources)Muscle RelaxantStart: 92-22-6020tatr 1 tablet by mouth three times daily as needed for muscle spasmscyclobenzaprine 10 mg Tab 10 mg = 1 tab(s), Oral, TID, PRN for spasm, Refills(s) 0 Start Date: 02/04/25 Status: Ordered Repeat number: 1diclofenac sodium 0.01 mg/mg topical gel (2 sources)Nonsteroidal Anti-inflammatory DrugStart: 05-19-2023 End: 04-20-4220hlgbyczvbl sodium 1 % gel Indications: Neuralgia Apply 2 g topically in the morning and 2 g in the evening and 2 g before bedtime. 180 g 2 05/19/2023 08/17/2023 Activeescitalopram 10 mg oral tablet (2 sources)Serotonin Reuptake Inhibitortake 1 tablet by mouth every twenty-four hoursLexapro 10 MG 1 tablet Orally Once a day ActiveEscitalopram Oxalate 20 MG (Prior Auth: Rx Ref#:[id number]) Oral for 30 Activefluticasone propionate 0.05 mg/actuat metered dose nasal spray (2 sources)CorticosteroidStart: 40-13-4551Irekuho 0.05 mg/inh Colden 2 spray(s), Nasal, Daily, Refill(s) 0 Start Date: 02/04/25 Status: OrderedRepeat number: 1 gabapentin 300 mg oral capsule (5 sources)Anti-epileptic AgentStart: 91-86-7575grbk 1 capsule by mouth three times dailygabapentin 300 mg Cap 300 mg = 1 cap(s), Oral, TID, Refills(s) 0 Start Date: 02/04/25 Status: Ordered Repeat number: 1glipiZIDE 5 mg oral tablet (3 sources)Sulfonylureatake 1 tablet by mouth in the morningglipiZIDE (Glucotrol) 5 MG tablet Take 5 mg by mouth in the morning. Active hydroCHLOROthiazide 50 mg oral tablet (8 sources)Thiazide DiureticStart: 77-21-3931Egzewpssnelmhqurujy 50 mg tablet Active MG PO April 04, 2025 12:00am Complies with drug therapyStart: 67-95-3733orhg 1 tablet by mouth once dailyhydrochlorothiazide 50 mg Tab 50 mg = 1 tab(s), Oral, Daily, Refills(s) 0 Start Date: 02/04/25 Status: Ordered Repeat number: 1Start: 15-39-2115tpth 1 tablet by mouth once dailyhydrochlorothiazide 25 mg Tab 25 mg = 1 tab(s), Oral, Daily, High blood pressure Start Date: 0 Status: OrderedhydroCHLOROthiazide ActivehydroCHLOROthiazide 25 mg / losartan potassium 100 mg oral tablet (1 source)Thiazide Diuretic, Angiotensin 2 Receptor BlockerLosartan Potassium- HCTZ 100-25 MG (Prior Auth: Rx Ref#:[id number]) Oral for 30 Activeirbesartan 150 mg oral tablet (8 sources)Angiotensin 2 Receptor BlockerStart: 55-78-8353Cpjpenmsyp 150 mg tablet Active MG PO April 04, 2025 12:00am Complies with drug therapy Start: 08-55-3152pvyr 1 tablet by mouth once dailyirbesartan 150 mg Tab 150 mg = 1 tab(s), Oral, Daily, High blood pressure Start Date: 04/28/20 Status: Ordered Repeat number: 1Irbesartan Activemeloxicam 15 mg oral tablet (2 sources)Nonsteroidal Anti-inflammatory DrugStart: 08-03-2023 End: 61-06-6134sskb 1 tablet by mouth in the morning, then take 1 tablet by mouth once dailymeloxicam (Mobic) 15 MG tablet Indications: Osteoarthritis Take 1 tablet (15 mg) by mouth in the morning. Take one pill PO Daily. 30 tablet 0 08/03/2023 09/02/2023 ActivemethylPREDNISolone 4 mg oral tablet (1 source)CorticosteroidStart: 10-69-2112rfnaxdZUSTLMHyxldj 4 MG as directed Orally Once a day for 6 days May, Activenystatin 909364 unt/ml oral suspension (1 source)Polyene AntifungalStart: 61-83-1461kkpg 1 mL by mouth four times daily Nystatin 100,000 unit/mL suspension Active 5 ML PO Four times daily 200 10 April 04, 2025 12:00am swish and swallow Complies with drug therapy Semaglutide (1 source)Start: 56-04-6423Ohbyqesytlv (Ozempic) 2 mg/dose (8 mg/3 mL) pen injector Active MG SUBCUT April 04, 2025 12:00am Complies with drug therapythyroid (fci) 120 mg oral tablet (8 sources)Start: 36-71-4545Sfhlego (Pork) (Niva Thyroid) 120 mg tablet Active MG PO April 04, 2025 12:00am Complies withdrug therapyStart: 04-28-2020 take 1 tablet by mouth once dailyArmour Thyroid 120 mg Tab 120 mg = 1 tab(s), Oral, Daily, Thyroid Start Date: 04/28/20 Status: Ordered Repeat number: 124 hr venlafaxine 150 mg extended release oral capsule (10 sources)Serotonin and Norepinephrine Reuptake InhibitorStart: 98-20-4702xawd 1 capsule by mouth every twenty-four hoursVenlafaxine 150 mg capsule,extended release 24hr Active MG PO April 04, 2025 12:00am Complieswith drug therapy Start: 81-27-2955rawa 1 capsule by mouth once dailyvenlafaxine 150 mg Cap-ER 150 mg = 1 cap(s), Oral, Daily, Refills(s) 0 Start Date: 02/04/25 Status: Ordered Repeat number: 1Venlafaxine HCl Activezolpidem tartrate 10 mg oral tablet (6 sources)gamma-Aminobutyric Acid-ergic AgonistStart: 64-81-1173Emuuuooz 10 mg tablet Active MG PO April 04, 2025 12:00am Complies with drug therapy Start: 01-31-9615xsqt 1 tablet by mouth once daily at bedtime as needed for sleepAmbien 10 mg Tab 10 mg = 1 tab(s), Oral, Once a day (at bedtime), PRN for sleep, Refills(s) 0 StartDate: 02/04/25 Status: Ordered Repeat number: 1 Completed/Discontinued Medications MedicationDrug Class(es)DatesSig (Normalized)Sig (Original)potassium chloride 20 meq extended release oral tablet (2 sources)Start: 29-17-9025qzzr 1 tablet by mouth once dailypotassium chloride 20 mEq ER Tab 20 mEq = 1 tab(s), Oral, Daily, Refills(s) 0 Start Date: 02/04/25 Status: Ordered Repeat number: 1 Problems Active Problems Problem ClassificationProblemDateDocumented DateEpisodic/ChronicChronic obstructive pulmonary disease and bronchiectasis (1 source)Chronic obstructive pulmonary disease, unspecified; Translations: [COPD UNSPECIFIED]Onset: 19-10-5812IgkcnzoAofmjol obstructive pulmonary disease and bronchiectasis (1 source)Bronchitis, not specified as acute or chronicEpisodicDiabetes mellitus with complications (1 source)Disorder of nervous system due to type 2 diabetes mellitus; Translations: [Type 2 diabetes mellituswith other diabetic neurological complication]71-10-8494RxipctkShzesdpl mellitus without complication (2 sources)Type 2 diabetes mellitusOnset: 439903-09-1739AbgbhoeOtrqfpvxl of lipid metabolism (2 sources)Mixed hyperlipidemiaOnset: 961322-20-2974UlzovduZkkoilabzd disorders (2 sources)Gastroesophageal reflux gfrypdv86-84-5358TirqpydEpmfgcsnk hypertension (6 sources)Hypertensive disorder; Translations: [Essential hypertension]Onset: 529665-64-6083FvkpfzaQcvzohyiugmcn and screening for infectious disease (2 sources)Contact with and (suspected) exposure to other viral communicable diseases; Translations: [Contact with and (suspected) exposure to other viral communicable diseases]EpisodicMood disorders (6 sources)Depressive ihsyookr68-96-0930YkhmrroEmsswysbklk chest pain (1 source)Other chest pain; Translations: [OTHER CHEST PAIN]Onset: 04-02-2022 EpisodicOsteoarthritis (3 sources)Osteoarthritis of muvj66-55-0673HmkfoobKeios connective tissue disease (1 source)Foot pain; Translations: [Pain in right foot]40-58-1828JbqelcfzQxxwp connective tissue disease (1 source)Plantar fasciitis; Translations: [Plantar fascial fibromatosis] 32-67-6824KoomgjerKxjqh connective tissue disease (2 sources)Pain in both feet; Translations: [Pain in right foot]06-01-2023 EpisodicOther nervous system disorders (3 sources)Neuropathy; Translations: [Polyneuropathy, unspecified]05-24-2023 ChronicOther nervous system disorders (1 source)Mortons neuroma of left foot; Translations: [Lesion of plantar nerve, left lower limb]28-40-5542JgqmobjQkmor nervous system disorders (1 source)Mortons neuroma of right foot; Translations: [Lesion of plantar nerve, right lower limb]19-98-7108PndfcbnTdvnt nutritional; endocrine; and metabolic disorders (2 sources)Body mass index 30+ - puywnvs46-34-4687WpnghdkEqtdu nutritional; endocrine; and metabolic disorders (2 sources)Obese class IKC67-89-1054VolukawHxqqz skin disorders (1 source)Epidermoid cyst; Translations: [Epidermal cyst]Onset: 03-19-2025 EpisodicOther skin disorders (1 source)Epidermoid cyst of ivju01-90-1211YhoikmnxKauvw skin disorders (1 source)Ruptured epidermal wbmq87-38-3634BwllecdgZozok upper respiratory disease (2 sources)Allergic afowblie56-91-4072JgcadsmRuldf upper respiratory infections (1 source)Sore throat symptom; Translations: [Acute pharyngitis, unspecified] 17-50-7584MdbhvikqAcnbii media and related conditions (1 source)Otitis media, unspecified, right earEpisodicSubstance-related disorders (4 sources)Nicotine dependence, cigarettes, uncomplicated; Translations: [Smoker]Onset: 009665-80-2225XpkbtdtBpgwzge on above:Added secondary to documentation in Social History.Thyroid disorders (5 sources)Zgkdmxnimuinlu34-95-7071TjlwlnkMtfnxdletiwd (3 sources)COUGH, UNSPECIFIED; Translations: [COUGH, UNSPECIFIED]Onset: 04-02-2022 Past or Other Problems Problem ClassificationProblemDateDocumented DateEpisodic/ChronicUnclassified (1 source)COUGH, UNSPECIFIED; Translations: [COUGH, UNSPECIFIED]Onset: 51-68-8954Szqgd infection (1 source)COVID-19 Results Test NameValueInterpretationReference RangeFacilityNo Panel InformationOrdered By: Anabelle Pickens on 43-95-8322Vmuef Strep (POC)[facility] TroyAmbulatory Visit Summaryon 29-36-1344Iohvjycheq Visit SummaryAmbulatory Visit Summary DAVID OCONNOR :1975 Visit Date:03/19/2025 Ambulatory Visit Instructions Your Care Team Attending Physician - JORDAN WONG, Bernard Jason Primary Care Physician - Asha Rivera CNP This Is Your Medications List alprazolam (Xanax 0.25 mg Tab) atorvastatin (atorvastatin 40 mg Tab) cyclobenzaprine (cyclobenzaprine 10 mg Tab) fluticasone nasal (Flonase 0.05 mg/inh Colden) gabapentin (gabapentin 300 mg Cap) hydrochlorothiazide (hydrochlorothiazide 50 mg Tab) irbesartan (irbesartan 150 mg Tab) potassium chloride (potassium chloride 20 mEq ER Tab) semaglutide (Ozempic 8 mg/3 mL (2 mg dose) subcutaneous solution) thyroid desiccated ([place] Thyroid 120 mg Tab) venlafaxine (venlafaxine 150 mg Cap-ER) venlafaxine (venlafaxine 150 mg Cap-ER) zolpidem (Ambien 10 mg Tab) Procedures Performed Excision of cyst (03/06/2025), Arthroscopic chondroplasty of knee joint (05/02/2020), Arthroscopy of knee (05/02/2020), Appendectomy, Bone spur, C- Section, Ovarian cystectomy, Plantar fasciotomy, TAHBSO - Total abdominal hysterectomy and bilateral salpingo-oophorectomy. Medications What How Much When Instructions Unchanged alprazolam (Xanax 0.25 mg Tab) 1 Tablets By Mouth 3 times a day as needed for as needed for anxiety Unchanged atorvastatin (atorvastatin 40 mg Tab) 1 Tablets By Mouth Every day Unchanged cyclobenzaprine (cyclobenzaprine 10 mg Tab) 1 Tablets By Mouth 3 times a day as needed for for spasm Unchanged fluticasone nasal (Flonase 0.05 mg/ inh Colden) 2 Sprays Nasal Inhalation Every day Unchanged gabapentin (gabapentin 300 mg Cap) 1 Capsules By Mouth 3 times a day Unchanged hydrochlorothiazide (hydrochlorothiazide 50 mg Tab) 1 Tablets By Mouth Every day Unchanged irbesartan (irbesartan 150 mg Tab) 1 Tablets By Mouth Every day Unchanged potassium chloride (potassium chloride 20 mEq ER Tab) 1 Tablets By Mouth Every day Unchanged semaglutide (Ozempic 8 mg/ 3 mL (2 mg dose) subcutaneous solution) 2 Milligram Subcutaneous Every week Unchanged thyroid desiccated ([place] Thyroid 120 mg Tab) 1 Tablets By Mouth Every day Unchanged venlafaxine (venlafaxine 150 mg Cap-ER) 1 Capsules By Mouth Every day Unchanged venlafaxine (venlafaxine 150 mg Cap-ER) 1 Capsules By Mouth Every day Unchanged zolpidem (Ambien 10 mg Tab) 1 Tablets By Mouth Once a day (at bedtime) as needed for for sleep Allergies Rybelsus (unknown) metFORMIN (Vomiting, Nausea) Problems [...] signed up for this yet, please contact [employer] at [phone] to get signed up today. Language Information Language assistance services are available as needed. [facility] IncGeneral Surgery Office/Clinic Noteon 68-53-9425Xfhusrp Surgery Office/Clinic NoteGeneral Surgery Office/Clinic Note Chief Complaint post operative follow up HPI Staff 13 day post operative follow up post excisional biopsy left inframammary crease cyst. Denies discomfort, swelling, bleeding or drainage. History of Present Illness 13 days s/p excisional biopsy of ruptured epidermal cyst in left inframammary crease; pathology consistent with ruptured epidermal cyst with inflammation; doing well, mild soreness, no drainage. Review of Systems PHQ Score Initial Depression Screen Score: 0 SCORE ROS - Provider Constitutional: no fever, no sweats, no weight loss. Eyes: no glasses, no blurred vision, no visual loss. ENMT: no dentures, no hoarseness, no swallowing difficulties, no hearing loss, no ear infection(s),no nose bleeds. Cardiovascular: normal blood pressure, no [...] weakness. Skin: no changing moles, no rash, no skin lumps. Neurologic: no seizures, no epilepsy, [...] and are negative or noncontributory. Physical Exam skin: incision healing well, no erythema or drainage, no ecchymosis Assessment/Plan 1. Ruptured epidermal cyst (L72.0: Epidermal cyst) healing well; keep incision clean and dry; call with problems/questions. Follow-up No qualifying data available Problem List/Past Medical History Ongoing Allergic rhinitis BMI 36.0-36.9,adult Class 3 obesity Depression Epidermal cyst Essential hypertension GERD (gastroesophageal reflux disease) Hypothyroidism Mixed hyperlipidemia Ruptured epidermal cyst Smoker Type 2 diabetes mellitus Historical Depression HTN (hypertension) Procedure/Surgical History Excision of cyst (03/06/2025), Arthroscopic chondroplasty of knee joint (05/02/2020), Arthroscopy of knee (05/02/2020), Appendectomy, Bone spur, C- Section, Ovarian cystectomy, Plantar fasciotomy, TAHBSO - Total abdominal hysterectomy and bilateral salpingo-oophorectomy. Medications Ambien 10 mg Tab, 10 mg= 1 tab(s), Oral, Once a day (at bedtime), PRN [place] Thyroid 120 mg Tab, 120 mg= 1 tab(s), Oral, Daily atorvastatin 40 mg Tab, 40 mg= 1 tab(s), Oral, Daily cyclobenzaprine 10 mg Tab, 10 mg= 1 tab(s), Oral, TID, PRN Flonase 0.05 mg/inh Colden, 2 spray(s), Nasal, Daily gabapentin 300 mg [...] pack or more)/day in last 30 days Tobacco Use:. Current vaping or e-cigarette use Smokeless Tobacco Use:. Cigarettes, Vaping, 0.75 per day. Started age 40.0 Years. Ready tochange: No. Household tobacco concerns: No. Yes, 03/19/2025 Current Every Day Smoker, Cigarettes, 10/31/2014 Family History Diabetes mellitus type 2: Father. Hypertension: Mother. Primary malignant neoplasm of female breast: Sister. Primary malignant neoplasm of lung: Father.[facility] Comment on above:Result Comment: Electronically Signed By: JORDAN WONG, Bernard Robert\Date and Time Signed: 03/19/25 15:52 Shonda 03-06-2025L Specimen: [id number] Received: 03/06/25 Status: GERRY Capone Num: [id number] Spec Type: Surgical Subm Dr: Bernard Ortega MD FACS Tissues: A Skin Cyst (LEFT INFRAMAMMARY CREASE EPI) Procedures: HE/4, Gross/Micro L3 Age/ Patient Sex Location Account Attending Physician David Oconnor 49/F [place]E[facility] [id number] Bernard Ortega MD FACS SPEC NUM: [id number] RECD: 03/06/25 STATUS: GERRY CAPONE NUM: [id number] [place]: 03/06/25-[address] [facility] [address]: Bernard Ortega MD FACS ENTERED: 03/06/[address]: Chris,Lab SPEC TYPE: Surgical DEPT: SHAHID WRIGHT ORDERED: HE/4, Gross/Micro L3 ORDERED: HE/4, Gross/Micro L3 Pathological Diagnosis Left inframammary crease, cyst, excision: - Ruptured epidermal inclusion cyst with foreign-body giant cell reaction and mixed acute and chronic inflammation in fibroadipose soft tissue Clinical Information Epidermal cyst Gross Description Received in formalin labeled with the patients name, date of , and Left inframammary crease epidermal cyst are fragments of fibrofatty tissue, 3 x 2 x 0.8 cm with a loosely attached, gonzalez-lee, wrinkled strip of skin, 0.6 x 1.8 cm. The specimens are inked black. Serial sections reveal yellow-lee, glistening and uniform cut surfaces with a indurated rim of pale yellow tissue, up to 0.3 cm in thickness noted in the largest fragment. The specimen is entirely submitted in A1?A4. Fixation Time: Time specimen extracted: 1015 Time specimen placed in formalin: 1015 Cold ischemic time: Less than 1 minute Total fixation time: 7 hours and 30 minutes (4, narinder, [id number])JG Specimen: [id number] Received: 03/06/25 Status: GERRY Capone Num: [id number] Spec Type: Surgical Subm Dr: Bernard Ortega MD FACS Tissues: A Skin Cyst (LEFT INFRAMAMMARY CREASE EPI) Procedures: /Jagdeep, Gross/Micro L3 Patient: David Oconnor [id number] (Continued) Specimen: [id number] Received: 03/06/25 (Continued) Signed (signature on file) Luis Wiley MD 03/07/25 1507 Specimen: [id number] Received: 03/06/25 Status: GERRY Capone Num: [id number] Spec Type: Surgical Subm Dr: Bernard Ortega MD FACS Tissues: A Skin Cyst (LEFT INFRAMAMMARY CREASE EPI) Procedures: /4, Gross/Micro L3 Patient: David Oconnor [id number] (Continued) Specimen: [id number] Received: 03/06/25 (Continued) Microscopic Description Microscopic examination is performed. CPT Codes 54771 Specimen: [id number] Received: 03/06/25 Status: GERRY Capone Num: [id number] Spec Type: Surgical Subm Dr: Bernard Oretga MD FACS Tissues: A Skin Cyst (LEFT INFRAMAMMARY CREASE EPI) Procedures: HE/4, Gross/Micro L3 Patient: David Oconnor [id number] (Continued) Signed (signature on file) Luis Wiley MD 03/07/[address] [facility] Physician GroupAmbulatory Visit Summaryon 25-72-9800Vypnsxpzsl Visit SummaryAmbulatory Visit Summary DAVID OCONNOR :1975 Visit Date:02/08/2025 Ambulatory Visit Instructions Your Care Team Attending Physician - JORDAN WONG, Bernard Jason Primary Care Physician - Asha Rivera CNP Referring Physician - DR. ASHA NOE This Is Your Medications List Contact prescribing physician if questions or concerns alprazolam (Xanax 0.25 mg Tab) atorvastatin (atorvastatin 40 mg Tab) cyclobenzaprine (cyclobenzaprine 10 mg Tab) fluticasone nasal (Flonase 0.05 mg/inh Colden) gabapentin (gabapentin 300 mg Cap) hydrochlorothiazide (hydrochlorothiazide 50 mg Tab) irbesartan (irbesartan 150 mg Tab) potassium chloride (potassium chloride 20 mEq ER Tab) semaglutide (Ozempic 8 mg/3 mL (2 mg dose) subcutaneous solution) thyroid desiccated ([place] Thyroid 120 mg Tab) venlafaxine (venlafaxine 150 [...] Unchanged fluticasone nasal (Flonase 0.05 mg/ inh Colden) 2 Sprays Nasal Inhalation Every day Contact [...] if questions or concerns Unchanged thyroid desiccated ([place] Thyroid 120 mg Tab) 1 Tablets By Mouth Every day Contact prescribing physician if questions or concerns Unchanged venlafaxine (venlafaxine 150 mg Cap-ER) 1 Capsules By Mouth Every day Contact prescribingphysician if questions or concerns Unchanged venlafaxine (venlafaxine 150 mg Cap-ER) 1 Capsules By Mouth Every day Contact prescribingphysician if questions or concerns Unchanged zolpidem (Ambien [...] signed up for this yet, please contact [employer] at [phone] to get signed up today. Language Information Language assistance services are available as needed. [facility], IncUS LE VENOUS DUPLEX LEFTon 12-29-2023 Exam Date/Time: 12/27/2023 14:29 EDT Reason for Exam: M79.662 Report IMPRESSION: NO EVIDENCE OF VENOUS THROMBOSIS INVOLVING VISUALIZED DEEP VEINS OF THE LEFT LEG PROBABLE DISLA'S CYST WITHIN THE LEFT POPLITEAL FOSSA. CLINICAL HISTORY: M79.662 COMMENT: There are no findings of deep venous thrombus in the visualized vessels of the of the left lower extremity. There is a cystic area within the left popliteal fossa. It measures 1.7 x 1.7 cm likely Disla's cyst. Ordering Provider: Adonis Hand FINAL REPORT Dictated: 12/29/2023 12:04 pm Mynor Mcmullen Signed (Electronic Signature): 12/29/2023 12:04 pm Signed by: Mynor Mcmullen Transcribed by: EDUAR Technologist: [facility]ITALRad[facility], Radiologist, MD - 12/29/2023 Exam Date/Time: 12/27/2023 14:29 EDT Reason for Exam: M79.662 Report IMPRESSION: NO EVIDENCE OF VENOUS THROMBOSIS INVOLVING VISUALIZED DEEP VEINS OF THE LEFT LEG PROBABLE DISLA'S CYST WITHIN THE LEFT POPLITEAL FOSSA. CLINICAL HISTORY: M79.662 COMMENT: There are no findings of deep venous thrombus in the visualized vessels of the of the left lower extremity. There is a cystic area within the left popliteal fossa. It measures 1.7 x 1.7 cm likely Disla's cyst. Ordering Provider: Adonis Hand FINAL REPORT Dictated: 12/29/2023 12:04 pm Mynor Mcmullen Signed (Electronic Signature): 12/29/2023 12:04 pm Signed by: Mynor Mcmullen Transcribed by: EDUAR Technologist: JUAN DYSON RoomActuallyUS LE VENOUS DUPLEX LEFTOrdered By: Radiologist Radiology on 55-00-0887RPUL RoomActually Work Phone: US LE VENOUS DUPLEX LEFTon 98-97-4799Rscgwhmdr Study observation (narrative)Genomed RoomActuallyXR CHEST 2 VIEWSon 71-39-1978ZK CHEST 2 VIEWSEXAMINATION: XR CHEST 2 VIEWS CLINICAL HISTORY: PRE-OP COMPARISONS: None FINDINGS: Two views of the chest are submitted. The cardiac silhouette is of normal size configuration. \Pulmonary vascular unremarkable. Right sided trachea. No focal infiltrates. No effusions. No Pneumothoraces. IMPRESSION: NO ACUTE ACTIVE CARDIOPULMONARY PROCESS ELECTRONICALLY SIGNED BY: Mynor Mcmullen MDNormalNot AvailableCOVID/FLU RT-PCR on 22-21-7155DKFW-CoV-2 (COVID-19) RNA SCARLETT+probe Ql (Unsp spec)PositiveNortEximo Medical Other COVID/FLU RT-PCRNegativeNoHMT Technology Other CBC AUTO DIFFon [id number] #0.1 103/ulNormal 0.0-0.1The [facility] AkronComment on above:Performed By: #### CBC #### [facility] [address] [address] [address] Dana MckeonBasophils/100 WBC (Bld)0.7 %Normal0.2-2.0The [facility] Comment on above:Performed By: #### CBC #### [facility] [address] [address] [address] Dana Lyon #0.4 103/ulNormal0.0-0.7The [facility] AkronComment on above: Performed By: #### CBC #### [facility] [address] [place] [address] Dr. Dana Canalesosinophils/100 WBC (Bld)2.2 %Normal0.9-7.0The [facility] Comment on above:Performed By: #### CBC #### [facility] [address] [place] [address] Dr. Dana Canalesrythrocyte distribution width (RBC) [Ratio]13.7 %Wvefrc47.0-15.0 The [facility] AkronComment on above:Performed By: #### CBC #### [facility] [address] [place] [address] Dr. Dana MckeonHematocrit (Bld) [Volume fraction]48.5 %Critically high36.0-48.0 The [facility] AkronComment on above:Performed By: #### CBC #### [facility] [address] [place] [address] Dr. Dana MckeonHemoglobin (Bld) [Mass/Vol]16.0 g/kBRxwwej03.0-16.0The [facility] AkronComment on above:Performed By: #### CBC #### [facility] [address] [place] [address] Dr. Dana France #0.06 10e3/ulCritically high0.00-0.03The [facility] Comment on above:Performed By: #### CBC #### [facility] [address] [place] [address] Dr. Dana France %0.4 %Normal0.0-0.5The [facility] - AkronComment on above: Performed By: #### CBC #### [facility] [address] [address] [address] Dana Johnson #1.9 103/ulNormal1.2-3.8The Veterans Health Administrationment on above:Performed By: #### CBC #### [facility] [address] [address] [address] Dana Sewellmphocytes/100 WBC (Bld)12.0 %Critically low20.5-60.0The [facility] AkronComment on above:Performed By: #### CBC #### [facility] [address] [place] [address] Dr. Dana Fisher DIFF REQNONormalThe [facility] AkronComment on above: Performed By: #### CBC #### [facility] [address] [place] [address] Dr. Dana Gastelum (RBC) [Entitic mass]28.8 fjHpxmkn45.7-34.0The [facility] AkronComment on above:Performed By: #### CBC #### [facility] [address] [place] [address] Dr. Dana Gastelum (RBC) [Mass/Vol]33.0 g/hXPevdgx29.9-35.2The [facility] AkronComment on above:Performed By: #### CBC #### [facility] [address] [place] [address] Dr. Dana Gastelum (RBC) [Entitic vol]87.2 bWFbbxkf72.0-99.0The [facility] AkronComment on above:Performed By: #### CBC #### [facility] [address] [place] [address] Dr. Dana Jade #0.7 103/ulNormal0.3-0.8The [facility] AkronComment on above:Performed By: #### CBC #### [facility] [address] [place] [address] Dr. Dana Mcnultyocytes/100 WBC (Bld)4.4 %Normal1.7-12.0The [facility] Comment on above:Performed By: #### CBC #### [facility] [address] [address] [address] Dana Vann #12.9 103/ulCritically high1.4-6.5The [facility] Comment on above:Performed By: #### CBC #### [facility] [address] [place] [address] Dr. Dana Mcadamsutrophils/100 WBC (Bld)80.3 %Critically high43.0-75.0The [facility] AkronComment on above:Performed By: #### CBC #### [facility] [address] [place] [address] Dr. Dana Dykeslet mean volume (Bld) [Entitic vol]10.2 fLNormal9.5-13.5The [facility] AkronComment on above:Performed By: #### CBC #### [facility] [address] [place] [address] Dr. Dana MckeonPLT324 103/viHodibk611-005Air [facility] AkronComment on above: Performed By: #### CBC #### [facility] [address] [place] [address] Dr. Dana MckeonRBC5.56 106/ulCritically high4.20-5.40[facility] Comment on above:Performed By: #### CBC #### [facility] [address] [place] [address] Dr. Dana MckeonWBC16.1 103/ulCritically high4.0-11.0The [facility] AkronComment on above:Performed By: #### CBC #### [facility] [address] [place] [address] Dr. Dana MckeonPROF 14(COMP METB)on 63-15-8360Wrradqh [Mass/Vol]4.0 g/dLNormal 3.4-5.0[facility] HospitalComment on above:Performed By: #### CMP #### [facility] [address] [place] [address] Dr. Dana MckeonAlbumin/Globulin [Mass ratio]0.9 {ratio}NormalThe [facility] - AkronComment on above:Performed By: #### CMP #### [facility] [address] [address] [address] Dana Covington [Catalytic activity/Vol]99 U/IUcuhxa38-282Wia [facility] AkronComment on above:Performed By: #### CMP #### [facility] [address] [address] [address] Dana GrierT [Catalytic activity/Vol]45 U/IOztfay18-77Xvf [facility] AkronComment on above:Performed By: #### CMP #### [facility] [address] [address] [address] Dana De La Fuenteon gap [Moles/Vol]15.9 mmol/LNormalThe [facility] Comment on above:Performed By: #### CMP #### [facility] [address] [place] [address] Dr. Dana MckeonAST [Catalytic activity/Vol]25 U/PZcibcy72-98Dra [facility] AkronComment on above:Performed By: #### CMP #### [facility] [address] [place] [address] Dr. Dana MckeonBilirubin [Mass/Vol]0.3 mg/dLNormal0.2-1.0The [facility] Comment on above:Performed By: #### CMP #### [facility] [address] [place] [address] Dr. Dana MckeonCalcium [Mass/Vol]9.6 mg/dLNormal8.5-10.1The [facility] Comment on above:Performed By: #### CMP #### [facility] [address] [place] [address] Dr. Dana MckeonChloride [Moles/Vol]100 mmol/GKxifml07-522Iax [facility] Comment on above:Performed By: #### CMP #### [facility] [address] [place] [address] Dr. Dana MckeonCO2 [Moles/Vol]28.9 mmol/IZcbbbd37.0-32.0The [facility] Comment on above:Performed By: #### CMP #### [facility] [address] [address] [address] Dana MckeonCreatinine [Mass/Vol]0.98 mg/dLNormal0.55-1.02The [facility] AkronComment on above:Performed By: #### CMP #### [facility] [address] [address] [address] Cortez ChangEGFR-AF RWANDAN>60Normal>=60The [facility] AkronComment on above:Performed By: #### CMP #### [facility] [address] [address] [address] Dana CanalesGFR-NON AF UPXIRQUZ46 mL/min/1.55r7Hjfzzs>=60The [facility] AkronComment on above:Performed By: #### CMP #### [facility] [address] [place] [address] Dr. Dana MckeonGlobulin (S) [Mass/Vol]4.3 g/dLNormalThe [facility] AkronComment on above:Performed By: #### CMP #### [facility] [address] [address] [address] Dana MckeonGlucose [Mass/Vol]146 mg/dLCritically nqip29-049Hei [facility] AkronComment on above:Performed By: #### CMP #### [facility] [address] [address] [address] Dana MckeonPotassium [Moles/Vol]3.8 mmol/LNormal3.5-5.1The [facility] Comment on above:Performed By: #### CMP #### [facility] [address] [address] [address] Dana MckeonProtein [Mass/Vol]8.3 g/dLCritically high6.4-8.2The [facility] AkronComment on above:Performed By: #### CMP #### [facility] [address] [address] [address] Dana MckeonSodium [Moles/Vol]141 mmol/ATsoagt437-959Sbc [facility] Comment on above:Performed By: #### CMP #### [facility] [address], [place] [address] Dr. Dana MckeonUrea nitrogen [Mass/Vol]13.0 mg/dLNormal7.0-18.0The [facility] AkronComhenry for[facility] on above:Performed By: #### CMP #### [facility] [address], [place] [address] Dr. Dana MckeonUrea nitrogen/Creatinine [Mass ratio]13.3 mg/mgNoWood County Hospitale [facility] AkronComment on above:Performed By: #### CMP #### [facility] [address], [place] [address] Dr. Dana MckeonXR CHEST 1 Von 16-13-6789XJ CHEST 1 VCXR HISTORY: Shortness of breath, cough and chest [...] Electronically authenticated by: ANDRES WOLF Date: 2022 01:08[facility] Vital Signs Date TimeVital SignValuePerforming TjqqbvvevDpbuqihe59-70-7038 12:38-0400Body .1 cmBernard Ortega MD Work Phone: [facility]09-25-2025 12:38-0400 Body mass index (BMI) [Ratio]35.3 kg/j9MladxfuBernard Ortega MD Work Phone: [facility]09-25-2025 12:38-0400 Body bhzemddexue52.8 [degF]Bernard Ortega MD Work Phone: [facility]09-25-2025 12:38-0400 Body aljdyy74.27 kgBernard Ortega MD Work Phone: [facility]09-25-2025 12:38-0400 Diastolic blood mm[Hg]Bernard Ortega MD Work Phone: 1([phone]09-25-2025 12:38-0400 Heart rate79 /minBernard Ortega MD Work Phone: 1(315)[address] [place], [place] 1611409-25-2025 12:38-0400 Respiratory rate19 /minBernard Ortega MD Work Phone: [phone])[address] [place], [place] 1611409-25-2025 12:38-0400 SaO2% (BldA) [Mass fraction]98 %Bernard Ortega MD Work Phone: 1(761)[address] [place], [place] 1611409-25-2025 12:38-0400 Systolic blood bcmlumwq362 mm[Hg]Bernard Ortega MD Work Phone: 1(478)[address] [place], [place] 1611402-07-2024 14:11-0500 Body .6 cmMarc Dolce DPM FACFAS Work Phone: 1(226)[address] [place], [place] 6893302-07-2024 14:11-0500Body mass index (BMI) [Ratio]38.45 kg/m2Marc Dolce DPM FACFAS Work Phone: 1(440)[address] [place], [place] 6893302-07-2024 14:11-0500Body xbifkf299.61 kgMarc Dolce DPM FACFAS Work Phone: [phone])[address]02-07-2024 14:11-0500Diastolic blood mgtszymg75 mm[Hg]Adonis Blaynece DPM FACFAS Work Phone: 1(251)[address] [place], [place] 6893302-07-2024 14:11-0500Heart rate74 /min Adonis Dolce DPM FACFAS Work Phone: [phone])[address]02-07-2024 14:11-0500Systolic blood mm[Hg]Adonis Cisnerosce DPM FACFAS Work Phone: [phone] HospitalWuqngvwugx23-75-0005 17:09-0500Body tbyzjo254.1 Oscar Tee Work Phone: [facility]11-14-2023 17:09-0500 Body snqvperkvci25.7 [degF]HEIDI Tee Work Phone: 1(605)784-[address] [place], [place] 2904611-14-2023 17:09-0500 Body dafixe045.3 kgQUYEN-Bertha Tee Work Phone: 1(361)149-[address] [place], [place] 2904611-14-2023 17:09-0500 Diastolic blood idymdrpn94 mm[Hg]PA-Bertha Tee Work Phone: 1(740)530-[address] [place], [place] 2904611-14-2023 17:09-0500 Heart rate86 /minHEIDI Tee Work Phone: 1(681)692-[address] [place], [place] 2904611-14-2023 17:09-0500 Respiratory rate18 /minQUYEN-Bertha Tee Work Phone: 1(897)985-[address] [place], [place] 2904611-14-2023 17:09-0500 SaO2% (BldA) [Mass fraction]98 %HEIDI Tee Work Phone: [phone]11-14-2023 17:09-0500 Systolic blood oobmricp727 mm[Hg]HEIDI Tee Work Phone: 1(680)926-[address] [place], [place] 2904611-29-2022 16:00-0500 Body tkriok161.56 cmSgavin Clemens Other [employer] Other 11-29-2022 16:00-0500Body fnvhaztmolj89.1 [degF] Arely Clemens Other [employer] Other 11-29-2022 16:00-0500Respiratory rate18 /minSgavin Clemens Other [employer] Other 11-29-2022 16:00-4466DwR9% (BldA) [Mass fraction]98 % Arely Clemens Other [employer] Other Encounters Encounter DateEncounter TypeCare ProviderFacilityStart: 04-04-2025 End: 37-25-7798iomqurgalpNIZ [facility] Work Phone: Start: 04-04-2025 End: 08-84-9722Uhknirz encounter procedureLaester Peters APRN-[facility] Work Phone: Start: 03-19-2025 End: 83-68-1418synqopnmvgLjehkjv R NILLFacility: tart: 03-19-2025 End: 26-75-7684Pszvxht encounter procedureMichael R NILL [phone]-TmrzmGu[facility] [place] Start: 03-06-2025 End: 55-90-4985jtybqpgnxqZncdttf R JordanDetwiler [facility] Work Phone: Start: 03-06-2025 End: 15-91-4032Gojkilqk ReferredMichael Casie Ortega MD FACS-LAB Path Spec [place] HospStart: 03-06-2025 End: 40-64-6640whshtjoxjbDsjfbyg R NILLFacility:CD:[id number]: 02-08-2025 End: 14-81-1596pgvejyqwejPSCAINF JORDANFacility:ARMEN GarciakStart: 02-08-2025 End: 51-67-0973Kcfaswm encounter procedureMichael R NILL [phone]-PswrwGuernsey Memorial Hospital [facility] [place] Start: 47-28-5062cibtvojtpmKTQNTAL JORDANFacility:ARMEN BellevueStart: 01-03-2024 End: 97-72-4433zsuvhomitdEOXT D DOLCENot AvailableStart: 12-27-2023 End: 83-90-2871Smrdyxthe Result EncounterMarc D Dolce DPM FACFAS Work Phone: noms External Department UnsolicitedStart: 12-27-2023 End: 61-27-4575Ybntxmchr Result EncounterMarc D Dolce DPM FACFAS Work Phone: noms External Department UnsolicitedStart: 12-27-2023 End: 24-15-3577Tnqgcnq encounter procedureMarc D BlayneceDoctors Hospital Start: 12-27-2023 End: 69-20-9699wftgvvwmuzMEPE D DOLCENot AvailableStart: 12-07-2023 End: 79-13-8342ayhohsngoyPTWH D DOLCENot AvailableStart: 11-15-2023 End: 52-71-0867cmmlklzzxiIVIA D DOLCENot AvailableStart: 11-08-2023 End: 54-97-8728wcdzwntoavTEDA D DOLCENot AvailableStart: 10-20-2023 End: 00-23-2967eehsrjcdokKRBI D DOLCENot AvailableStart: 10-19-2023 End: 69-80-6208narwbggyboPIPL D DOLCENot AvailableStart: 09-21-2023 End: 38-86-5300lkhcjkkitxWRRH D DOLCENot AvailableStart: 09-07-2023 End: 03-30-4100xgxsdjejhoNPJF D DOLCENot AvailableStart: 08-17-2023 End: 02-05-6551Ryipnk outpatient visit 15 minutesMarc D Dolce DPM FACFAS Work Phone: noms NMA PODComment on above:Type II diabetes mellitus with neurological manifestations (CMS/HCC) (Primary Dx); Nuno's neuroma of left foot; Nuno neuroma, right; Plantar fasciitisStart: 51-20-3291Tewfke flowsheetMarc D Dolce DPM FACFAS Work Phone: noMS ASC PODStart: 81-53-1914Lpxnpc flowsheetMarc D Dolce DPM FACFAS Work Phone: noms ASC PODStart: 08-17-2023 End: 21-40-8665stsulcnxjvODCU D DOLCENot AvailableStart: 08-03-2023 End: 69-06-6288bpwkdgpwpgDOQS D DOLCENot AvailableStart: 07-08-2023 End: 38-68-7655nrvspgyjjiKMVF D DOLCENot AvailableStart: 06-22-2023 End: 65-72-2486wqadbtsaowTNJQ D DOLCENot AvailableStart: 05-24-2023 End: 68-35-7705Mnfnlvqet department patient visitQUYEN-Bertha Tee Work Phone: [facility] Work Phone: Start: 06-08-2022 End: 08-50-4737yyluajnsiyFybwhmduf Breault Other [place] [employer] Other Start: 77-79-7728Fujtwj outpatient visit 15 minutes Arely Villalobos [facility] ClydeStart: 2022 End: 72-27-1154xrzdgpglnkOM JOSE L ROMEROFacility:H1 Procedures DateProcedureProcedure DetailPerforming ClinicianStart: 02-67-8524Ampbz Strep (POC)Bernard Ortega MD Work Phone: Start: 18-82-1824Kvgdggvi of cystMichael NILL Start: 48-73-6860OQ LE VENOUS DUPLEX LEFTMarc D Dolce DPM FACFAS Work Phone: Start: 00-01-4279Oxibhjgsstrm chondroplasty of knee jointMarc DolceComment on above:medial,partial medial menisectomy. patella femoral.Start: 05-33-5683Hcttfevgyov of kneeMarc DolceAppendectomyMarc Dolce sectionMarc DolceExcision of cyst of ovaryMichael NILL Fasciotomy of footMichael NILL HysterectomyMarc DolceOsteophyte of bone (disorder) Bernard NILL Total abdominal hysterectomy with bilateral salpingo-oophorectomyMichael NILL Plan of Treatment DateCare ActivityDetailAuthorStart: 09-07-2023 End: 92-75-1413Iopgwmtv Lmensls9309/07/2023 2:00 PM EST Clinical Support [facility] [address] [place] [address] Adonis Hand, DPM FACFAS [address] [place] [address] [facility] NMA PODStart: 08-17-2023 End: 62-22-2147Rjatounx Trtdvap1108/17/2023 2:10 PM EST Clinical Support [facility] [address] [place] [address] Adonis Hand, DPM FACFAS [address] [place] [address] ArrivedNOMS NMA PODComment on above:ArrivedStart: 46-12-0150J-ray of both feetXR foot BI [address] [place], [place] [address]tart: 02-47-2130SQ Foot - bilateral 3 [facility] HospitalPatient EducationPeripheral Neuropathy [facility] Work Phone: Patient referralMercy Health [facility] Work Phone: Payers DatePayer CategoryPayerPolicy [id number] Health [id number] Health Insurance [id number] [facility] Specialty HealthcareBS Member Subscriber Plan / Payer (Effective 2021-Present) Name: David Oconnor Relation to Subscriber: Spouse Name: MATTHEW OCONNOR Date of : 1969 (Home) Address: [place] [address] Payer ID: Not on file Type: Not on file Address: [address] [place] [id number] BCBS [id number] 2021-Present [phone] [address] [place] [id number] [id number] 2..1.633006.3.57[id number] 2..1.070189.3.57[id number] 2..1.736737.3.57[id number] 2..1.885095.3.579.2.427149-06-0921Dnecnrp7156144 2..1.112821.3.57[id number] 2..1.035724.3.57[id number] 2..1.771610.3.57[id number] 2.0.1.713370.3.579.[id number] 2.0.1.610181.3.579.[id number] 2.16840.1.745804.3.579.2.455590-63-6398Pttlwuq7135436 2.16.840.1.141128.3.579.[id number] 2.840.1.807838.3.579.2.173085-50-6595Aqvnejt2426889 2.16840.1.150247.3.579.2.[id number] 2.0.1.714333.3.57[id number] 2.840.1.145620.3.579.2.751106-24-5678Fgswvkl695699 2.0.1.407189.3.579.2.265933-33-8775Jznqewf287881 2.0.1.434000.3.579.2.578[id number] 2.16840.1.389331.3.579.[id number] 2.0.1.847612.3.57[id number] 2..1.362015.3.57[id number] 2.0.1.253026.3.579.2.833[id number] 2.840.1.403778.3.579.2.531 Social History DateTypeDetailFacilityStart: 05-19-2023 End: 40-07-8814Gpl [facility]ryStart: 07-58-8386Zguwsfv smoking status NHISSmoker (finding)[facility] Institutetart: 59-31-3208Jit Assigned At BirthFeFirelands Regional Medical Centertart: 01-08-2011 End: 20-31-7402Taeqvva smoking status NHISSmokes tobacco dailyNOFL Healthcare Start: 49-82-0103Upbkemm of tobacco useCigarette SmokerNOFL HealthcareStart: 05-19-2023 End: 77-85-8226Fgwleogsbs smoked current (pack per day) - Qvbqgbfz9JEHB HealthcareStart: 08-03-2023 End: 16-49-2113Vljhurg intakeCurrent drinker of alcohol (finding)[facility] How often to you have a drink containing alcohol?Monthly or lessNOMS Healthcare How many standard drinks containing alcohol do you have on a typical day?1 or 2 [facility] HealthcareHow often do you have 6 or more drinks on 1 occasion?NeverNOFL HealthcareStart: 42-33-8135Fwzmfxh CommentSmokes 11-20 cigs per dayNOFL HealthcareStart: 62-09-5359Aijkkrj Commentcaffeine intake: 2-3 cups per dayLONE PEAK HOSPITAL HealthcareStart: 31-45-3454Vet Assigned At BirthNot on [facility] HealthcareStart: 10-13-2018 End: 96-98-5211Gvksqhk smoking statusHeavy tobacco smoker (finding)Doctors HospitalComment on above:Sts pack per day smokerSexual Orientation [facility] [place] Start: 24-33-0951IvoZolyxf (finding)[facility] Limatart: 94-89-5581GhnOpydpxETGL Healthcare Clinical Notes 06-08-2022 to 03-01-2025 Note Date & UazaWkcnJbadmiht94-07-8668 Evaluation + Plan note Future Scheduled Tests Radiology* MA Mamm Screen w/CAD if perf and 3D Joe 03/01/25 [facility] [place] 08-03-2025 NoteGeneral Surgery Office/Clinic Note Chief Complaint consultation for cyst HPI [...] drainage, some white drainage 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 Cardiovascular: normal blood pressure, no [...] Oral, Once a day (at bedtime), PRN [place] Thyroid 120 mg Tab, 120 mg= 1 tab(s), Oral, Daily atorvastatin 40 mg Tab, 40 mg= 1 tab(s), Oral, Daily cyclobenzaprine 10 mg Tab, 10 mg= 1 tab(s), Oral, TID, PRN Flonase 0.05 mg/inh [place], 2 spray(s), Nasal, Daily gabapentin 300 mg [...] last 30 days Tob (more content not included)...[facility] TownshipComment on above:Result Comment: Electronically Signed By: JORDAN WONG, Bernard Robert\Date and Time Signed: 02/10/25 18:15 [id number] History of Present illness Narrative* Adonis Hand DPM FACFAS - 08/17/2023 2:10 PM EST Images from the original note were not [...] History: Past Medical History: Diagnosis Date Depression (CMS/HCC) HTN (hypertension) (CMS/HCC) Thyroid disease (CMS/HCC) Medications: Current Outpatient Medications: ALPRAZolam (Xanax) 0.25 [...] g in the evening and 2 g beforebedtime., Disp: 180 g, Rfl: 2 gabapentin (Neurontin) [...] PO Daily., Disp: 30 tablet, Rfl: 0 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 Vibratory sensation was intact B/L Musculoskeletal: Muscle strength was +5 over 5 all intrinsic and extrinsic muscles tested. There isless pain with direct palpation of the medial band of the plantar fascia right foot. Mild pain throughout the course of the plantar fascia. No palpable deficits or ecchymosis noted within the plantarfascial band. There is no pain with lateral compression of the heel. Patient has a mild gastrocnemius-soleus equinus with mild tenderness noted at the level of the Achilles tendon. No palpable deficits noted within the Achilles tendon. No pain with range of motion of the ankle or subtalar joint. Nopain with direct palpation of the interspace bilaterally no neuroma pain noted. Neuroma appears to have resolved ASSESSMENT 1. Nuno's neuroma of left foot 2. Nuno neuroma, right 3. Plantar fasciitis 4. Type II diabetes mellitus with neurological manifestations (CMS/HCC) PLAN The patient was educated on the etiology of plantar fasciitis. I recommended the patient continue stretching and icing on a regular basis. I recommended another injection consisting of 1 cc of 2% lidocaine plain and 1 cc of Kenalog 10 via ultrasonic guidance into the medial and central bands of theplantar fascia. Ultrasound was necessary to ensure exact [...] neuropathy both sensory as well as autonomic ne uropathy. I recommended routine inspections of their feet on a regular basis to prevent long-term foot problems related to diabetic ulcerations. NAGA Rosado documented in this encounterSaint Luke's East [id number] Evaluation note* Encounter Date Diagnosis Assessment Notes Treatment Notes Treatment Clinical Notes May, Contact with and (prince spected) exposure to other viral communicable diseases (ICD-10 - Z20.828) May,OVID-19 (ICD-10 - U07.1)Today you tested positive for the COVID virus. This mean you need to follow all CDC quarantine guidelines found at coronavirus.[place].gov. It is important to rest, increase fluids, and stay at home. Recommend contacting primary care provider and discussing best course of action if you have chronic health conditions. COVID POSITIVE education handout discharge instructions. given., Discharge Instructions for COVID-19 (Suspected or Confirmed ) material was printed, Discharge Instructions for COVID-19 (Suspected or Confirmed ) material was printed May,ronchitis (ICD-10 - J40)Take medications as directed. Rest and increase fluid [...] weeks for the cough to go away May,ight acute otitis media (ICD-10 - H66.91)Ear infections are often a secondary infection caused from an URI, the flu or allergies. Take medication as directed. Complete all doses, even if you feel better. Tylenol or ibuprofen can help with pain. Warm pack to area for comfort helps as well. Follow up with primary care provider if no improvement of symptoms. [employer] Other Evaluation + Plan note No data available for this section [facility] Future Appointments Appointment Date:03/01/2025 03:30:00 PM Scheduled Provider: Location:FT.[facility]MOGRAM Appointment Type:MA Screen (FT) Future Scheduled Tests Radiology* MA Mamm Screen w/CAD if perf and 3D Joe 03/01/25 [facility] [place] Evaluation noteNo assessment information available [facility] Work Phone: Evaluation note* Diagnosis Type II diabetes mellitus with neurological manifestations (CMS/HCC)- Primary Type II or unspecified type diabetes mellitus with neurological manifestations, not 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, right Plantar fasciitis Plantar fascial fibromatosis documented in this encounter [facility]* Diagnosis Onset Date Resolution Status Admit Date Sore throat noneactiveSept2024 12:12pm [facility] Work Phone: History general Narrative - Reported* Type Description Date Medical History hypertension Medical Historythyroid disease [employer] [facility] [employer] Other Hospital Discharge instructions No data available for this section [facility] HospitalProgress note No data available for this section [facility] HospitalReason for referral (narrative)No reason for referral information availableDetwiler Memorial Hospital Work Phone: Summary Purpose Family History Relationship Condition Age at Onset Recorded Date/T reginald father Unknown Malignant neoplasmUnknown Advance Directives Advance Directive Response Recorded Date/ Time Advance Directives No May 5:19pm Advance Directive Response Recorded Date/ Time Advance Directives No May 6:19pm Chief Complaint and Reason for Visit Chief Complaint bilat foot pain nki Chief Complaint Admit Date Unknown March 06, 2025 10 :15am Chief Complaint Admit Date Unknown March 06, 2025 10 :15am Sore throat, tongue soreness March 122024 12:12pm Reason for Visit Admit Date Sore throat April 04, 2025 12:12pm Additional Source Comments INFORMATION SOURCE (unrecogn ized section and content) DATE CREATED AUTHOR 04/11/2022 [facility] DATE CREATED AUTHOR AUTHOR'S ORGANIZ ATION 01/04/2024 [facility] EPIC DATE CREATED AUTHOR AUTHOR'S ORGANIZ ATION 03/08/2025 [facility] DATE CREATED AUTHOR AUTHOR'S ORGANIZ ATION 03/21/2025 [facility] REASON FOR VISIT (unrecogniz ed section and content) ReasonCommentsNeuromaF/U B/L neuroma injections Care Teams (unrecognized sec tion and content) Team Status: Active Member Role Status Dates Asha Rivera NP Primary Care Provider Active Team Status: Inactive Member Role Status Dates Danny Tee PA-C Emergency Provider Active Asha Rivera NPPrimary Care ProviderActiveTeam MemberRelationshipSpecialty Start DateEnd Date Asha Rivera MD [address] [place] [phone] Referring [facility]06/22/23Team MemberRelationshipSpecialtyStart DateEnd Date Asha Rivera MD [address] [place] [phone] Referring [facility]06/22/23 Team Status: Inactive Member Role Status Dates Bernard Ortega MD FACS Attending Provider Active Start: March 06, 2025 End: March 06, 2025 Team Status: Active Member Role Status Dates NON STAFF Primary Care Provider Active Team Status: Inactive Member Role Status Dates Anabelle Pickens APRN Attending Provider Active Start: April 04, 2025 End: April 04, 2025NON STAFFPrimary Care ProviderActiveStart: April 04, 2025 End: April 04, 2025Team MemberRelationshipSpecialtyStart DateEnd Date Yvonne Phillips DO [address] [place] [address] PCP - [facility]09/21/23 Asha Rivera MD [address] [place] [phone] Referring [facility]06/22/23 Goals (unrecognized section and content) Goals may [...] BE BASED ON THE PRIMARY CLINICAL RECORDS. [facility], [facility]. provides no warranty or guarantee of the accuracy or completeness of information in this document.
--- OUTSIDE RECORDS SUMMARY | 2025-06-21 18:07 | XMS_ITS | Clinical Summary ---
Author Organization [facility] Address [address] [place] [address] Care Team Providers Care Industrial Chemicals Supervisor Name Role Phone Asha Rivera MD Unavailable [phone] Yvonne Phillips DO Primary Care Provider [phone] Allergies No known active allergies Medications MedicationSigDispense QuantityRefillsLast FilledStart DateEnd DateStatus ALPRAZolam (Xanax) 0.25 MG tablet Take 0.25 mg by mouth in the morning and 0.25 mg in the evening and 0.25 mg before bedtime.02/16/2023ctive atorvastatin (Lipitor) 40 MG tablet Take 40 mg by mouth in the morning.02/18/2023ctive cyclobenzaprine (Flexeril) 10 MG tablet Take 10 mg by mouth in the morning and 10 mg before bedtime.02/16/2023ctive gabapentin (Neurontin) 300 MG capsule Take 300 mg by mouth in the morning and 300 mg in the evening and 300 mg before bedtime.05/06/2023ctive glipiZIDE (Glucotrol) 5 MG tablet Take 5 mg by mouth in the morning.Active hydroCHLOROthiazide (HYDRODiuril) 50 MG tablet Take 50 mg by mouth in the morning.Active irbesartan (Avapro) 150 MG tablet Take 150 mg by mouth in the morning and 150 mg before bedtime.Active venlafaxine XR (Effexor XR) 150 MG 24 hr capsule Take 150 mg by mouth in the morning.Active zolpidem (Ambien) 10 MG tablet Take 10 mg by mouth at bedtime. for sleepActive BEZEL CUTTER Thyroid 120 MG tablet Take 120 mg by mouth in the morning.Active Active Problems No known active problems Encounters DateTypeDepartmentCare EohsYftknaemcle10/12/2025linisync Result Encounter [facility] External Department Unsolicited Yvonne Yap PA from Last 3 Months Family History Medical HistoryRelationNameCommentsDiabetesBrotherHypertensionBrotherThyroid diseaseBrotherCancerFatherDiabetesFatherCancerMaternal GrandfatherDiabetes Maternal GrandfatherHeart diseaseMaternal GrandmotherHypertensionMaternal GrandmotherThyroid diseaseMaternal GrandmotherHypertensionMotherCancerPaternal GrandmotherHeart diseasePaternal GrandmotherHypertensionPaternal Grandmother DiabetesSisterHypertensionSisterThyroid diseaseSisterRelationNameStatusComments BrotherFatherAliveMaternal GrandfatherDeceasedMaternal GrandmotherDeceasedMother AlivePaternal GrandmotherSister Social History Tobacco UseTypesPacks/DayYears UsedDateSmoking Tobacco: Every DtqFsezjtyiog241.4 Started: 01/2011 Tobacco Cessation:Ready to Q uit: Not Asked; Counseling Given: Yes Comments:Smokes 11-20 cigs per day Alcohol UseStandard Drinks/WeekCommentsYes0 (1 standard drink = 0.6 oz pure alcohol)caffeine intake: 2-3 cups per dayAUDIT-CAnswerDate RecordedQ1: How often do you have a drink containing alcohol?Monthly or less05/19/2023Q2: How many drinks containing alcohol do you have on a typical day when you are drinking?1 or Q3: How often do you have six or more drinks on one occasion?Never 3CommentsUnknownSex and Gender InformationValueDate RecordedSex Assigned at BirthNot on fileLegal JxrCsgnvd43/15/2023 7:40 PM EDTGender Identity Not on fileSexual OrientationNot on file Last Filed Vital Signs Vital SignReadingTime TakenCommentsBlood Hrtjldki104/7907 1:11 PM EDT Wgklm778802/01/2024 1:11 PM LPMUxiotryizhn87.7 ??C (98 ??F)10/20/2023 12:29 PM EDT Respiratory Rate--Oxygen Lxcmspqsht57%10/20/2023 12:29 PM EDTInhaled Oxygen Concentration--Pnrmre667 kg (242 lb)02/01/2024 1:11 PM HZRAraguf029.6 cm (5' 4 ) 02/01/2024 1:11 PM EDTBody Mass Index41.54002/01/2024 1:11 PM EDT Plan of Treatment Not on file Procedures Procedure NamePriorityDate/TimeAssociated DiagnosisCommentsECG 12-LEAD06/21/2025 4:14 PM EST from Last 3 Months Results * ECG 12-LEAD (06/21/2025 4:14 PM EST)Anatomical RegionLateralityModalityOther Specimen (Source)Anatomical Location / LateralityCollection Method / Volume Collection TimeReceived Time06/21/2025 4:14 PM EST Narrative 06/21/2025 5:26 PM EST [facility] ?[address] ? [place] [id number] ? Electrocardiograph Report ? Signed ? Patient: DAVID OCONNOR ?MR#: [id number] ?? : 1975 ?Acct:[id number] ?? Age/Sex: 50 / F ?ADM Date: ?? Loc: ER ? Attending Dr: ? Ordering Physician: Yvonne Yap ?? Date of Service: 06/21/25 ?? Procedure(s): ECG 12 lead ?? Accession Number(s): [id number] ? cc: ?[facility] ? Test Date: ?2025-06-21 ?? Pat Name: ? DAVID OCONNOR ?Department: ? Room: ? - ?? Gender: ? Female ? Portfolio Specialist: ? : ?1975 ? Requested By: 0923 ?? Order Number: [id number] ?Reading MD: ?? AYANNA ??Morgan BRIONES ? Measurements ?? Intervals ?[place] ? Rate: ? 71 ? P: ?17 ?? IN: ? 172 ?QRS: ?44 ?? QRSD: ? 84 ? T: ?60 ?? QT: ? 392 ? QTc: ?415 ? Interpretive Statements ?? 1100 Sinus rhythm ?? 9110 ??normal ECG ? Compared to ECG 02/19/2025 11:59:09 ?? No significant changes ?? Electronically Signed On 06-21-2025 17:26:02 EST by AYANNA ??Morgan BRIONES ? Dictated By: ?AYANNA BRIONES ? Signed By: ?06/21/25 1726 ? DD/ 1614 ? TD/TT: ? Senior Maintenance Machinist: Procedure Note Radiology, Radiologist, MD - 06/21/2025 [place] [address] Electrocardiograph Report Signed Patient: DAVID OCONNOR BANNER#: [id number] : 1975Acct:[id number] Age/Sex: 50 / FADM Date: Loc: ER Attending Dr: Ordering Physician: Yvonne Yap Date of Service: 06/21/25 Procedure(s): ECG 12 lead Accession Number(s): [id number] cc: [facility] Test Date: 2025-06-21 Pat Name: DAVID OCONNOR Department: Room: - Gender: Female Portfolio Specialist: : 1975 Requested By: 0923 Order Number: [id number] Reading MD: AYANNA BRIONES M.D. Measurements Intervals [place] Rate: 71 P: 17 IN: 172 QRS: 44 QRSD: 84 T: 60 QT: 392 QTc: 415 Interpretive Statements 1100 Sinus rhythm 9110 normal ECG Compared to ECG 02/19/2025 11:59:09 No significant changes Electronically Signed On 06-21-2025 17:26:02 EST by AYANNA BRIONES M.D. Dictated By: AYANNA BRIONES Signed By:06/21/25 1726 DD/ 1614 TD/TT: Senior Maintenance Machinist: Authorizing ProviderResult TypeResult StatusAmy Fracisco PACLINISYNC IMAGINGFinal Result from Last 3 Months Insurance Care Teams Team MemberRelationshipSpecialtyStart DateEnd Date Yvonne Phillips [address] [place] [address] [facility] - [facility] Asha Rivera MD [address] [place] [address] Referring [facility]06/22/23
--- OUTSIDE RECORDS SUMMARY | 2025-06-21 18:07 | XMS_ITS | Clinical Summary ---
Author Organization [employer] [facility] tem Address [id number] [address] [place] [address] Care Team Providers Care Cushion Assembler Name Role Phone Pcp, Not In System Primary Care Provider Unavail able Allergies No known active allergies Medications MedicationSigDispense QuantityRefillsLast FilledStart DateEnd DateStatus levothyroxine (SYNTHROID, LEVOTHROID) 125 MCG tablet Take 1 tablet (125 mcg total) by mouth in the morning.Active glipiZIDE (GLUCOTROL) 5 mg tablet Take 1 tablet (5 mg total) by mouth in the morning.01/19/2023ctive irbesartan (AVAPRO) 150 mg tablet Take 1 tablet (150 mg total) by mouth in the morning and 1 tablet (150 mg total) before bedtime.01/20/2023ctive zolpidem (AMBIEN) 10 mg tablet Take 1 tablet (10 mg total) by mouth nightly.02/16/2023ctive hydroCHLOROthiazide (HYDRODIURIL) 50 mg tablet Take 0.5 tablets (25 mg total) by mouth daily. 30 tablet 02/25/2023ctive Active Problems ProblemNoted DateDiagnosed DateSyncope and ughimpxe47/17/2023Hypothyroidism 02/24/2023rimary gdalawlyhevd36/17/9186Igrjsef67/17/2023Type 2 diabetes mellitus, without long-term current use of uwrwrrk4902/24/2023Mixed hyperlipidemia 02/24/2023 Immunizations No known immunizations Social History Tobacco UseTypesPacks/DayYears UsedDateSmoking Tobacco: Every BweQabiovqkgz909 Smokeless Tobacco: Never Tobacco Cessation:Ready to Q uit: Not Asked; Counseling Given: Not Answered Alcohol UseStandard Drinks/WeekCommentsNever0 (1 standard drink = 0.6 oz pure alcohol)Housing InstabilityAnswerDate RecordedAre you worried or concerned that in the next two months you may not have stable housing that you own, rent or stay in as a part of a household?No3ChildcareAnswerDate Recorded DwdvgwxbdSedtery78/12/2019EmploymentAnswerDate RecordedEmploymentUnknown 12/20/2018Hunger ScreeningAnswerDate RecordedWithin the past 12 months we worried whether our food would run out before we got money to buy more.Never True02/24/2023Within the past 12 months the food we bought just didn't last and we didn't have money to get more.Never True02/24/2023CommentsNoSex and Gender InformationValueDate RecordedSex Assigned at BirthNot on fileLegal Sex Vbuofc3502/13/2015 11:28 AM EDTGender IdentityNot on fileSexual OrientationNot on file Last Filed Vital Signs Vital SignReadingTime TakenCommentsBlood Xhrixghc673/8702/25/2023 7:12 AM EDT Zszsv538302/25/2023 7:12 AM RGIYzwwbeclwjx79.6 ??C (97.9 ??F)02/25/2023 7:09 AM EDTRespiratory Dwui550302/25/2023 7:09 AM EDTOxygen Njtqqwhndk13%02/25/2023 7:09 AM EDTInhaled Oxygen Concentration--Plvhkb589 kg (242 lb 8 oz)02/24/2023 2:00 PM ILTVxrqfp462.1 cm (5' 5 )02/24/2023 2:00 PM EDTBody Mass Index40.35002/24/2023 2:00 PM EDT Plan of Treatment Health MaintenanceDue DateLast DoneCommentsDiabetic Ophthalmology Exam1973 Statin Use: Fthytrme1973Depression Yeysswdnz74/22/1985Tobacco Screening 1985Diabetic Foot Exam1991DTaP,Tdap and Td Vaccines (1 - Tdap) 1992Zoster (Shingles) Vaccine (1 of 2)2023dult BMI Screening /Influenza Pdcjrjm7103/11/2025 Goals GoalPatient Goal TypeAssociated ProblemsRecent ProgressPatient-Stated?Author safe discharge to home Gala Freeman RN Note: Evaluation of progress towards goal: safe transition from hospital to home with and family support. Medical Devices Not on file Insurance Advance Directives * Full Code (Latest Code Status on File) Date ActivatedDate InactivatedComments02/24/2023 11:16 AM02/25/2023 3:19 PM Care Teams Team MemberRelationshipSpecialtyStart DateEnd Date Pcp, Not In System ARNOLD Quinteros [id number] PCP - GeneralFamily Medicine02/24/23
--- OUTSIDE RECORDS SUMMARY | 2025-06-21 18:07 | XMS_ITS | Encounter Summary ---
Author Organization [facility] Address [address] [facility] [address] Care Team Providers Care Roll Up Helper Name Role Phone Asha Rivera MD Unavailable [phone] Yvonne Phillips DO Primary Care Provider [phone] Encounter Details DateTypeDepartmentCare Team (Latest Contact Info)Uoabvwbgefe86/12/2025linisync Result Encounter [facility] External Department Unsolicited Yvonne Yap, QUYEN [address] [place] [address] [place] [address] Social History Tobacco UseTypesPacks/DayYears UsedDateSmoking Tobacco: Every PcoQfzhayabkh940.4 Started: 01/2011 Comments:Smokes 11-20 cigs p er day Alcohol UseStandard Drinks/WeekCommentsYes0 (1 standard drink [...] InformationValueDate RecordedSex Assigned at BirthNot on fileLegal HegJkdzan37/15/2023 7:40 PM EDTGender Identity Not on fileSexual OrientationNot on filedocumented as of this encounter Plan of Treatment Not on file documented as of this encounter Procedures Procedure NamePriorityDate/TimeAssociated DiagnosisCommentsECG 12-LEAD06/21/2025 4:14 PM EST documented in this encounter Results * ECG 12-LEAD (06/21/2025 4:14 PM EST)Anatomical RegionLateralityModalityOther Specimen (Source)Anatomical Location / LateralityCollection Method / Volume Collection TimeReceived Time06/21/2025 4:14 PM EST Narrative 06/21/2025 5:26 PM EST [facility] ?[address] ? [place] [address] ? Electrocardiograph Report ? Signed ? Patient: DAVID OCONNOR A ?MR#: [id number] ?? : 1975 ?Acct:[id number] ?? Age/Sex: 50 / F ?ADM Date: ?? Loc: ER ? Attending Dr: ? Ordering Physician: Yvonne Yap ?? Date of Service: 06/21/25 ?? Procedure(s): ECG 12 lead ?? Accession Number(s): [id number] ? cc: ?[facility] ? Test Date: ?2025-06-21 ?? Pat Name: ? DAVID WILLIEAZAMOR ?Department: ? Room: ? - ?? Gender: ? Female ? Grain Grader: ? : ?1975 ? Requested By: 09 ?? Order Number: [id number] ?Reading : ?? AYANNA ??Morgan BRIONES ? Measurements ?? Intervals ?[place] ? Rate: ? 71 ? P: ?17 ?? [place]: ? 172 ?QRS: ?44 ?? QRSD: ? [...] 1726 ? DD/ 1614 ? TD/TT: ? Commissioner Of Internal Revenue: Procedure Note Radiology, Radiologist, MD - 06/21/2025 [place] [address] Electrocardiograph Report Signed Patient: DAVID OCONNOR AMR#: [id number] : 1975Acct:[id number] Age/Sex: 50 / FADM Date: Loc: ER Attending Dr: Ordering Physician: Yvonne Yap Date of Service: 06/21/25 Procedure(s): ECG 12 lead Accession Number(s): [id number] cc: [facility] Test Date: 2025-06-21 Pat Name: DAVID OCONNOR Department: Room: - Gender: Female Grain Grader: : 1975 Requested By: 0923 Order Number: [id number] Meggan MD: AYANNA BRIONES M.D. Measurements Intervals [place] Rate: 71 P: 17 [place]: 172 QRS: 44 QRSD: 84 T: 60 QT: 392 QTc: 415 Interpretive Statements 1100 Sinus rhythm 9110 normal ECG Compared to ECG 02/19/2025 11:59:09 No significant changes Electronically Signed On 06-21-2025 17:26:02 EST by AYANNA BRIONES M.D. Dictated By: AYANNA BRIONES Signed By:06/21/25 1726 DD/ 1614 TD/TT: Commissioner Of [employer] Revenue: Authorizing ProviderResult TypeResult StatusAmy Manter PACLDEKALB REGIONAL MEDICAL CENTERYNC IMAGINGFinal Result documented in this encounter Visit Diagnoses Not on filedocumented in this encounter Care Teams Team MemberRelationshipSpecialtyStart DateEnd Date Yvonne Phillips DO [address] [place] [phone] PCP - GeneralFamily Medicine09/21/23 Asha Rivera MD [address] [place] [address] Referring PhysicianFamily Ualzfxbu06/13/23documented as of this encounter
[2025-06-21] MEDS: HYDRALAZINE HCL 20 MG/ML VIAL 5 MG IVP (18:27)
--- NOTE | 2025-06-21 19:00 | ED.GENADUL1 ---
HPI HPI - General Adult General Chief complaint: Recheck/Abnormal Lab/Rx Stated complaint: Consistent High BP Time Seen by Provider: 06/21/25 17:14 Source: patient Mode of arrival: walk-in Limitations: no limitations History of Present Illness HPI narrative: 50-year-old female presents here with a chief complaint of elevated blood pressure. Patient states she has been having increasing and decreasing of her blood pressure medications due to weight loss recently while taking Ozempic. She presents today with mildly elevated blood pressure and headache. Denies blurred vision or double vision. Denies any history of strokes. Initial reading was 140/93 upon arrival here to the emergency room. Patient's vital signs are otherwise stable. She shows no focal neurological deficits. Related Data Home Medications ?Medication ?Instructions ?Recorded ?Confirmed alprazolam 0.25 mg tablet 0.25 mg PO TID PRN anxiety 04/15/23 06/21/25 atorvastatin 40 mg tablet 40 mg PO DAILY 04/15/23 06/21/25 cyclobenzaprine 10 mg tablet 10 mg PO BID 04/15/23 06/21/25 irbesartan 150 mg tablet 150 mg PO DAILY 04/15/23 06/21/25 thyroid (pork) 120 mg tablet (JACK TAMP OPERATOR 60 mg PO DAILY 04/15/23 06/21/25 Thyroid) venlafaxine 150 mg 150 mg PO DAILY 04/15/23 06/21/25 capsule,extended release 24 hr zolpidem 10 mg tablet 10 mg PO DAILY 04/15/23 06/21/25 gabapentin 300 mg capsule 300 mg PO Q8H 02/19/25 06/21/25 potassium chloride 20 mEq 20 meq PO DAILY 02/19/25 06/21/25 tablet,extended release(part/cryst) semaglutide 2 mg/dose (8 mg/3 mL) 2 mg subcut .once per week 02/19/25 06/21/25 subcutaneous pen injector (Ozempic) hydrochlorothiazide 25 mg tablet mg 06/21/25 Allergies Allergy/AdvReac Type Severity Reaction Status Date / Time No Known Drug Allergies Allergy Verified 06/21/25 17:14 Opioid HPI Opioid Management Most Recent Opioid Data: Last Pain Scale 2 03/06/25, 11:33 Review of Systems ROS Status of ROS 10 or more systems reviewed and unremarkable except as noted in history and below [facility] Medical History (Updated 06/21/25 @ 18:59 by Yvonne Yap) GERD (gastroesophageal reflux disease) ?K21.9 - Gastro-esophageal reflux disease without esophagitis (ICD-10) Hypertension ?I10 - Essential (primary) hypertension (ICD-10) Epidermal cyst ?L72.0 - Epidermal cyst (ICD-10) Diabetic peripheral neuropathy ?E11.42 - Type 2 diabetes mellitus with diabetic polyneuropathy (ICD-10) Bipolar disorder ?F31.9 - Bipolar disorder, unspecified (ICD-10) Anxiety ?F41.9 - Anxiety disorder, unspecified (ICD-10) Hypothyroidism ?E03.9 - Hypothyroidism, unspecified (ICD-10) Diabetes ?E11.9 - Type 2 diabetes mellitus without complications (ICD-10) Surgical History (Updated 02/19/25 @ 14:01 by Leny Farah) History of foot surgery ?Z98.890 - Other specified postprocedural states (ICD-10) History of hysterectomy ?Z90.710 - Acquired absence of both cervix and uterus (ICD-10) History of arthroscopy of knee ?Z98.890 - Other specified postprocedural states (ICD-10) History of section ?Z98.891 - History of uterine scar from previous surgery (ICD-10) Family History (Updated 02/19/25 @ 13:46 by Leny Farah) Other Family history of COPD (chronic obstructive pulmonary disease) Family history of bone cancer Family history of brain cancer Family history of breast cancer Family history of coronary artery disease Family history of diabetes mellitus Family history of hypertension Family history of lung cancer Family history of myocardial infarction Social History (Updated 02/19/25 @ 13:43 by Leny Farah) Within the past year, how often did you have a drink containing alcohol: never Score interpretation: A score less than 3 is consistent with normal alcohol consumption. 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 General: The patient appears well and in no apparent distress. Patient is resting comfortably on cart. Skin: Warm, dry, no pallor noted. There is no rash noted. Head: Normocephalic, atraumatic Eye: Normal conjunctiva, no drainage, EOMI. PERRL Ears, Nose, Mouth, and Throat: oral mucosa is moist. Nares patent. Mouth without vesicles. Ear canals patent. Tm's without Erythema Cardiovascular: Regular Rate and Rhythm Respiratory: Patient is in no distress, no accessory muscle use, lungs are clear to auscultation, no wheezing, rales or rhonchi Back: non-tender, no CVA tenderness bilaterally to percussion. GI: Normal bowel sounds, no tenderness to palpation, no masses appreciated. No rebound, guarding, or rigidity noted. Musculoskeletal: The patient has no evidence of calf tenderness, no pitting edema, symmetrical pulses noted bilaterally Neurological: A&O x4, normal speech Psychiatric: Cooperative Constitutional Vital Signs, click to edit/add: Last Vital Signs Temp 98.1 F 06/21/25 16:07 Pulse 76 06/21/25 16:14 Resp 11 L 06/21/25 16:14 BP 154/77 H 06/21/25 18:31 Pulse Ox 99 06/21/25 18:40 O2 Del Method Room Air 06/21/25 16:07 Course Vital Signs Vital signs: Vital Signs Temperature 98.1 F 06/21/25 16:07 Pulse Rate 70 06/21/25 16:07 Respiratory Rate 18 06/21/25 16:07 Blood Pressure 170/100 H 06/21/25 16:07 Pulse Oximetry 97 06/21/25 16:07 Oxygen Delivery Method Room Air 06/21/25 16:07 Temperature 98.1 F 06/21/25 16:07 Pulse Rate 76 06/21/25 16:14 Respiratory Rate 11 L 06/21/25 16:14 Blood Pressure 154/77 H 06/21/25 18:31 Pulse Oximetry 99 06/21/25 18:40 Oxygen Delivery Method Room Air 06/21/25 16:07 Medical Decision Making MDM Narrative Medical decision making narrative: 50-year-old female presents here with a chief complaint of elevated blood pressure. Patient states she has been having increasing and decreasing of her blood pressure medications due to weight loss recently while taking Ozempic. She presents today with mildly elevated blood pressure and headache. Denies blurred vision or double vision. Denies any history of strokes. Initial reading was 140/93 upon arrival here to the emergency room. Patient's vital signs are otherwise stable. She shows no focal neurological deficits. Patient presented here with chief complaint mild headache and elevated blood pressure. She was given a liter of fluids and also 1 dose of 5 mg of hydralazine. Her blood pressure has improved is 154/77. Slight headache patient was given a push dose of Toradol here. Headache has improved. Patient be discharged home and will follow-up with her primary care physician. Patient was given a liter of fluids here potassium slightly low at 3.4. Patient is no longer taking her hydrochlorothiazide per her history. Patient is going to follow-up primary care physician as discussed on Tuesday. This and return to the emergency room were discussed. Differential Diagnosis Differential Diagnosis: hypertension Medical Records Medical records reviewed: Yes I reviewed the patient's medical records Lab Data Lab results reviewed: Yes I reviewed the patient's lab results Labs: Lab Results 06/21/25 Range/Units 17:27 WBC 12.0 H (4.0-11.0) 10^3/uL RBC 5.38 (4.20-5.40) 10^6/uL Hgb 15.6 (12.0-16.0) g/dL Hct 45.7 (36.0-48.0) % MCV 84.9 (81.0-99.0) fL MCH 29.0 (26.7-34.0) pg MCHC 34.1 (29.9-35.2) g/dL RDW 12.9 (11.0-15.0) % Plt Count 357 (150-450) 10^3/uL MPV 9.8 (9.5-13.5) fL Neut % (Auto) 51.2 (43.0-75.0) % Lymph % (Auto) 39.1 (20.5-60.0) % [place] % (Auto) 5.8 (1.7-12.0) % Eos % (Auto) 2.8 (0.9-7.0) % Baso % (Auto) 0.9 (0.2-2.0) % Neut # (Auto) 6.1 (1.4-6.5) 10^3/uL Lymph # (Auto) 4.7 H (1.2-3.8) 10^3/uL [place] # (Auto) 0.7 (0.3-0.8) 10^3/uL Eos # (Auto) 0.3 (0.0-0.7) 10^3/uL Baso # (Auto) 0.1 (0.0-0.1) 10^3/uL Abs Immat Gran (auto) 0.03 (0.00-0.03) 10^3/uL Imm/Tot Granulo (auto) 0.2 (0.0-0.5) % PT 11.3 (9.0-11.6) sec INR 1.08 APTT 25.6 (22.3-36.2) sec Sodium 139 (136-145) mmol/L Potassium 3.4 L (3.5-5.1) mmol/L Chloride 103 (98-107) mmol/L Carbon Dioxide 31.4 (21.0-32.0) mmol/L Anion Gap 8.0 BUN 8.0 (7.0-18.0) mg/dL Creatinine 0.74 (0.55-1.02) mg/dL Est GFR ( Amer) >60 (>=60 mL/min/1.73m^2) Est GFR (Non-Af Amer) >60 (>=60 mL/min/1.73m^2) BUN/Creatinine Ratio 10.8 Glucose 109 H (74-106) mg/dL Calcium 9.8 (8.5-10.1) mg/dL Total Bilirubin 0.4 (0.2-1.0) mg/dL AST 19 (15-37) U/L ALT 28 (14-59) U/L Alkaline Phosphatase 83 (46-116) U/L Troponin I High Sens 7.6 (4.0-51.3) pg/mL NT-Pro-B Natriuret Pep 69.0 (<=900.0) pg/mL Total Protein 7.5 (6.4-8.2) g/dL Albumin 3.7 (3.4-5.0) g/dL Globulin 3.8 g/dL Albumin/Globulin Ratio 1.0 TSH 2.207 (0.358-3.740) uIU/mL Imaging Data Chest x-ray: Radiologist's impression: ITS Impressions Chest X-Ray 06/21/25 17:20 IMPRESSION: NO ACUTE CARDIOPULMONARY ABNORMALITY. Impression dictated by: Dewayne Rice M.D. 06/21/2025 6:38 PM Dictation Location: [place] [id number] Electronically authenticated by: [id number] Y Date: 06/21/2025 18:38 ECG Data Interpretation: 1614 EKG shows heart rate of 71 bpm no ectopy no ST elevation or depression RI 172 ms QRS duration 84 ms no STEMI Discharge Plan Discharge Chief Complaint: Recheck/Abnormal Lab/Rx Clinical Impression: Hypertension Patient Disposition: Home, Self-Care Time of Disposition Decision: 18:59 Condition: Good Prescriptions / Home Meds: No Action alprazolam 0.25 mg tablet 0.25 mg PO TID PRN (Reason: anxiety) atorvastatin 40 mg tablet 40 mg PO DAILY cyclobenzaprine 10 mg tablet 10 mg PO BID irbesartan 150 mg tablet 150 mg PO DAILY thyroid (pork) [JACK TAMP OPERATOR Thyroid] 120 mg tablet 60 mg PO DAILY venlafaxine 150 mg capsule,extended release 24hr 150 mg PO DAILY zolpidem 10 mg tablet 10 mg PO DAILY gabapentin 300 mg capsule 300 mg PO Q8H Ozempic 2 mg/dose (8 mg/3 mL) pen injector 2 mg SUBCUT .once per week potassium chloride 20 mEq tablet,ER particles/crystals 20 meq PO DAILY hydrochlorothiazide 25 mg tablet Print Language: Moz[place] Instructions: Hypertension (ED) Referrals: Asha Rivera, ACADEMIC ADVISEMENT DIRECTOR [Primary Care Provider] - 1 week
[2025-06-21] MEDS: KETOROLAC TROMETHAMINE 30 MG/ML VIAL IVP (19:13)
== END 2025-06-21 19:28 | disposition home or self-care (01) ==
PROVIDERS: Physician Assistant; Emergency Provider Emergency Medicine; PCP Nurse Practitioner Family
DX: I10 Essential (primary) hypertension (principal); R51.9 Headache, unspecified; Z79.85 Long-term (current) use of injectable non-insulin antidiabetic drugs; Z79.899 Other long term (current) drug therapy
CPT/HCPCS: 36415; 71046; 80053; 83880; 84443; 84484; 85025; 85610; 85730; 93005; 96374; 96375; 99284; 99285; J0360; J1885; J2405